=== PATIENT | male | born 1945 | race Caucasian/White ===

== ENCOUNTER 2016-05-23 18:25 | Emergency (ER) | payer MEDICARE, MEDICAID ==
--- NOTE | 2016-05-23 19:19 | ED ---
Complex/Multi-Sys Presentation - HPI Summary HPI Summary: Patient presents after his caregiver found his G-tube in his lap today at 1645. His GI doctor was consulted and he was referred to the ED for the tube to be replaced. He is in no acute distress without complaints. - History Of Current Complaint Chief Complaint: EDGeneral Time Seen by Provider: 05/23/16 18:34 Hx Obtained From: Family/Environmental Health Manager Onset/Duration: Sudden Onset Timing: Constant Severity Currently: None Location: Negative Associated Signs And Symptoms: Positive: Indwelling Commercial Account Officer - G-tube - Allergies/Home Medications Allergies/Adverse Reactions: Allergies Allergy/AdvReac Type Severity Reaction Status Date / Time No Known Drug Allergy Allergy Unknown Verified 04/26/14 14:00 Reaction Details PMH/Surg Hx/FS Hx/Imm Hx Cardiovascular History: Reports: Hx Congestive Heart Failure, Other Cardiovascular Problems/Disorders - peripheral edema Respiratory History: Reports: Hx Pneumonia GI History: Reports: Other GI Disorders - constipation, gerd, hemorrhoid History: Comment Only: Other Problems/Disorders - uti Musculoskeletal History: Reports: Other Musculoskeletal History - degenerative disk disease Sensory History: Reports: Hx Cataracts - unsure per sister, Hx Contacts or Glasses Opthamlomology History: Reports: Hx Cataracts - unsure per sister, Hx Contacts or Glasses Neurological History: Comment Only: Other Neuro Impairments/Disorders - per pt's sister--none Psychiatric History: Reports: Hx Anxiety, Other Psychiatric Issues/Disorders - mental retardation - Surgical History Surgery Procedure, Year, and Place: hip sugery----unknown date. ankle sugery--- unknown date Hx Anesthesia Reactions: No Infectious Disease History: Reports: Hx Tuberculosis Denies: Traveled Outside the [place] in Last 30 Days - Family History Known Family History: Positive: None - Social History Occupation: Disabled Lives: Assisted Living Alcohol Use: None Substance Use Type: Reports: None Smoking Status (MU): Never Smoked Tobacco Review of Systems All Other Systems Reviewed And Are Negative: Yes Physical Exam Triage Information Reviewed: Yes Vital Signs On Initial Exam: Initial Vitals Temp Pulse Resp BP Pulse Ox 97.4 F 65 20 121/61 95 05/23/16 18:32 05/23/16 18:32 05/23/16 18:32 05/23/16 18:32 05/23/16 18:32 Vital Signs Reviewed: Yes Appearance: Positive: Well-Appearing, No Pain Distress, Obese Skin: Positive: Warm, Skin Color Reflects Adequate Perfusion, Dry, Soft Head/Face: Positive: Normal Head/Face Inspection Eyes: Positive: EOMI, BEATRIZ, Conjunctiva Clear ENT: Positive: Hearing grossly normal Respiratory/Lung Sounds: Positive: Breath Sounds Present Cardiovascular: Positive: RRR Abdomen Description: Positive: Soft, Other: - G-tube Bowel Sounds: Positive: Present Musculoskeletal: Negative: Edema Left, Edema Right Neurological: Positive: Sensory/Motor Intact Psychiatric: Positive: Affect/Mood Appropriate - baseline as per caregiver AVPU Assessment: Alert Procedures - Procedure Summary Procedure Summary: The patient's g-tube anastomosis was cleansed and an 18 Israeli catheter was inserted through the space with water based lube. 10 cc of sterile saline was injected into the catheter to fill the balloon and the catheter was advanced until resistance was met. The area was cleansed and dressed with clean gauze and paper tape. The patient tolerated the procedure well. An x-ray with contrast was ordered to confirm tube placement. Diagnostics - Vital Signs Vital Signs Temp Pulse Resp BP Pulse Ox 05/23/16 18:32 97.4 F 65 20 121/61 95 - Laboratory Lab Statement: Any lab studies that have been ordered have been reviewed, and results considered in the medical decision making process. - Radiology No standard instances Xray Interpretation: No Acute Changes Radiology Interpretation Completed By: Radiologist - Contrast appears to be in the GI tract without obvious extension outside Complex Multi-Symp Course/Dx Course Of Treatment: The patient's tube appears successfully replaced. He will be referred back to his GI provider for permanent solution to his tube. - Diagnoses Differential Diagnoses/HQI/PQRI: Aspiration, Sepsis, Urinary Tract Infection, Other Provider Diagnoses: Impaired oral gastric feeding tube - Physician Notifications Discussed Care Of Patient With: Dr. Armstrong, ED attending. Discharge - Discharge Plan Condition: Stable Disposition: HOME Referrals: John Donahue DO [Primary Care Provider] - Additional Instructions: Please contact the patient's GI doctor in the morning for an appointment tomorrow for tube placement. Return to the emergency department if symptoms worsen.
--- NOTE | 2016-05-23 20:00 | RAD ---
INDICATION: The patient dislodged his gastrostomy tube. TECHNIQUE: 2 portable views the abdomen were obtained after contrast had been injected into the gastrostomy tube. FINDINGS: Contrast is seen filling the percutaneous gastrostomy tube. There is a small amount of contrast in the gastric lumen and contrast extending into the fourth portion of the duodenum. There is no definite extravasation of contrast. The balloon of the gastrostomy tube is overlying the midline epigastric area. IMPRESSION:None of the contrast injected into the gastrostomy tube is seen definitely outside the gastrointestinal tract indicating the patient's gastrostomy tube is likely appropriately positioned.
[2016-05-23 20:20] VITALS: BP 131/76
== END 2016-05-23 20:18 | disposition home or self-care (01) ==
LOC: ED 18:25
DX: R63.3 Feeding difficulties (principal); Z93.1 Gastrostomy status; Z86.79 Personal history of other diseases of the circulatory system
CPT/HCPCS: 74000; 99282

== ENCOUNTER 2016-05-31 12:43 | Emergency (ER) | payer MEDICARE, MEDICAID ==
[2016-05-31 14:32] VITALS: BP 128/75
--- NOTE | 2016-05-31 16:24 | ED ---
Skin Complaint - HPI Summary HPI Summary: 70 y/o male known to ER after visit 05/23, please see prior visit for medical information. Patients caregiver states G-tube clogged. Attempted to unclog with water, no success. Meds and feedings given through tube. tube recently replaced after fell out. no other concerns. - History of Current Complaint Chief Complaint: EDGeneral Time Seen by Provider: 05/31/16 13:15 Stated Complaint: POSS BLOCKAGE IN G-TUBE Hx Obtained From: Patient Hx From Patient Unobtainable Due To: Dementia Timing: Constant Pain Intensity: 0 Pain Scale Used: 0-10 Numeric - Allergy/Home Medications Allergies/Adverse Reactions: Allergies Allergy/AdvReac Type Severity Reaction Status Date / Time No Known Drug Allergy Allergy Unknown Verified 04/26/14 14:00 Reaction Details PMH/Surg Hx/FS Hx/Imm Hx Previously Healthy: No Cardiovascular History: Reports: Hx Congestive Heart Failure, Other Cardiovascular Problems/Disorders - peripheral edema Respiratory History: Reports: Hx Pneumonia GI History: Reports: Other GI Disorders - constipation, gerd, hemorrhoid History: Comment Only: Other Problems/Disorders - uti Musculoskeletal History: Reports: Other Musculoskeletal History - degenerative disk disease Sensory History: Reports: Hx Cataracts - unsure per sister, Hx Contacts or Glasses Opthamlomology History: Reports: Hx Cataracts - unsure per sister, Hx Contacts or Glasses Neurological History: Comment Only: Other Neuro Impairments/Disorders - per pt's sister--none Psychiatric History: Reports: Hx Anxiety, Other Psychiatric Issues/Disorders - mental retardation - Surgical History Surgery Procedure, Year, and Place: hip sugery----unknown date. ankle sugery--- unknown date Hx Anesthesia Reactions: No Infectious Disease History: No Infectious Disease History: Reports: Hx Tuberculosis Denies: Traveled Outside the [place] in Last 30 Days - Family History Known Family History: Positive: None - Social History Alcohol Use: None Substance Use Type: Reports: None Smoking Status (MU): Never Smoked Tobacco Review of Systems - ROS Summary Review of Systems Summary: unable to assess due to patients condition, appears well without complaints Constitutional: Negative All Other Systems Reviewed And Are Negative: Yes Physical Exam - Summary Physical Exam Summary: G tube in proper position, no redness around insertion site, obvious white clog seen in tubing, connected to regular coke, flushed through after few minutes of rest, flushed with 30cc water without problem. Triage Information Reviewed: Yes Vital Signs On Initial Exam: Initial Vitals Temp Pulse Resp BP Pulse Ox 96.0 F 62 20 108/81 98 05/31/16 12:45 05/31/16 12:45 05/31/16 12:45 05/31/16 12:45 05/31/16 12:45 Vital Signs Reviewed: Yes Appearance: Positive: Well-Appearing, No Pain Distress, Well-Nourished Skin: Positive: Warm, Skin Color Reflects Adequate Perfusion Abdomen Description: Positive: Nontender, Soft Diagnostics - Vital Signs Vital Signs Temp Pulse Resp BP Pulse Ox 05/31/16 14:28 96.0 F 54 20 128/75 95 05/31/16 12:45 96.0 F 62 20 108/81 98 - Laboratory Lab Statement: Any lab studies that have been ordered have been reviewed, and results considered in the medical decision making process. Course/Dx - Course Course Of Treatment: clogged G tube, no complications, unclogged. - Diagnoses Provider Diagnoses: Gastrostomy tube obstruction Discharge - Discharge Plan Condition: Improved Disposition: HOME Referrals: John Donahue DO [Primary Care Provider] - Additional Instructions: CLogged G tube, likely with medication - Clog taken out with 10cc of cola, regular - REturn as needed, flushing well
== END 2016-05-31 14:54 | disposition home or self-care (01) ==
LOC: ED 12:43
DX: K94.23 Gastrostomy malfunction (principal)
CPT/HCPCS: 99281

== ENCOUNTER 2016-07-03 23:06 | Inpatient (IN) | payer MEDICARE, MEDICAID ==
[2016-07-03] MEDS ORDERED: Furosemide IV* 10 MG/ML VIAL (40 MG) ONE (23:18)
[2016-07-03] MEDS ORDERED: Furosemide IV* 10 MG/ML VIAL (40 MG) IV ONE (23:21)
[2016-07-04 00:04] LABS: Urine Bilirubin Negative (Negative); Urine Glucose Negative (Negative); Urine Nitrite Negative (Negative)
[2016-07-04] MEDS ORDERED: Levofloxacin 750 MG IVPREMIX(* 750 MG/150 ML BAG IVPB ONE (00:15)
[2016-07-04 00:43] LABS: Albumin 3.2 g/dL (3.2-5.2); BUN/Creatinine Ratio 39.7 (8-20); C Reactive Protein 19.66 mg/L (< 5.00); Calcium 9.3 mg/dL (8.6-10.3); EGFR African American 177.1 (>60); EGFR Non-African American 137.7 (>60); Globulin 4.1 g/dL (2-4); Magnesium 2.5 mg/dL (1.9-2.7); Potassium 3.9 mmol/L (3.5-5.0); Total Bilirubin 0.5 mg/dL (0.2-1.0); Total Protein 7.3 g/dL (6.4-8.9)
[2016-07-04 00:44] LABS: Hematocrit 39 % (42-52); Hemoglobin 13.2 g/dl (14.0-18.0); Mean Corpuscular HGB Conc 34 g/dl (31-36); Mean Corpuscular Hemoglobin 33 pg (27-31); Mean Corpuscular Volume 99 fL (80-94); Mean Platelet Volume 12 um3 (7.4-10.4); Red Blood Count 3.96 10^6/ul (4.0-5.4); Red Cell Distribution Width 16 % (10.5-15); White Blood Count 3.1 10^3/ul (3.5-10.8)
[2016-07-04 00:45] LABS: Troponin I 0.01 ng/mL (<0.04)
[2016-07-04 00:48] LABS: Add Diff/Slide Review? Slide Review Added; Comments Flag Yes
[2016-07-04 01:25] LABS: TSH (Thyroid Stimulating Horm) 9.45 mcIU/mL (0.34-5.60)
--- NOTE | 2016-07-04 02:55 | HP ---
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 He is able to make basic needs known, but not without detail or insight. Currently is is lethargic and unable to participate in this history. His [facility] staff member reports noticing increased respiratory rate today during bathing prompting transfer to [place] ED for evaluation where he was diagnosed with CHF based on XRY and was placed on BiPap. He was not given diuretics prior to transfer due to low blood pressures, but did receive norepinephrine. Review of their records reveals a BNP of 64 strongly speaking against CHF. Additionally, repeat CXR here is poor inspiration, but not consistent with CHF and review of the [place] film which is of better inspiration looks more more likely a RLL infiltrate consistent with his history of dysphagia and aspiration. As he is a DNR and his respiratory rate is currently in the high 40s/low 50s, we will continue BiPap as he is a DNR/I, initiate empiric ABX, start IVFs, & hold further diuresis. PMedHx CHF HX GI bleed HX CVA hypothyroidism dysphagia aspiration pneumonitis chronic BLE edema GERD severe intellectual disability chronic gingivitis constipation non-inflammatory joint disease onychauxis positive PPD HX tobacco use strabismus chronic bronchitis B ptosis club foot s/p repair onychomycosis hemorrhoids Medications Nursing to reconcile. Allergies No Known Drug Allergy Allergy (Verified 04/26/14 14:00) Unknown Reaction Details PSurgHx none known to [facility] staff member SocHx: HX chewing tobacco none now, no alcohol or recreational drugs; single, never , no children; resides at the [facility]; baseline vocabulary of a 3-4year old, congenitally mentally challenged; DNR/I code status FamHx: unobtainable ROS: as above, otherwise reviewed and all were negative Constitutional: NAD, normally developed, obese white male vitals: Vital Signs Temp 34.1 C 07/04/16 02:30 Pulse 60 07/04/16 02:30 Resp 25 07/04/16 02:30 BP 114/39 07/04/16 02:30 Pulse Ox 91 07/04/16 02:30 Intake & Output 07/03/16 07/03/16 07/04/16 11:59 23:59 11:59 Intake Total 8 Output Total 925 Balance 8 -925 Weight 97.522 kg Intake: IV Fluids 8 Output: Sanchez 925 HEENM: atraumatic; sclera/conjunctiva: non-icteric/clear; hearing: unable to assess; oropharynx: clear, mucosa tacky Neck: soft tissue: non-tender, no nuchal rigidity; thyroid: normal Pulmonary: on BiPap, tachypneic in the high 40s/low 50s without overt distress or struggle; coarse crackles R>L base, good aeration, no accessory muscle use CV: RR/RR, normal S1S2, no carotid bruit, no jugular venous distention, trace B DP/PT, 3+ B pedal/2+ BLE edema (chronic) Abdominal: soft, non-distended, non-tender, no rebound/guarding/rigidity, normoactive bowel sounds, no hepatosplenomegaly or masses, no costovertebral angle tenderness Musculoskeletal: general: club foot; gait: currently too ill to attempt ambulation Integumental: normal appearance and texture Psychiatric orientation: opens eyes to tactile stimulate, does not answer questions affect: somnolent mood: acquiescent eye contact: poor content: absent responses: absent insight: poor to absent Testing: (Samuel): WBC 3.8k 74% granulocytes, 81k platelets, albumin 2.9, BUN/ cre 24/0.6, AST/ALT 66/84, BNP 64, troponin 0.01. Lab Results 07/03/16 07/04/16 07/04/16 Range/Units 23:40 00:16 00:16 WBC 3.1 L (3.5-10.8) 10^3/ul RBC 3.96 L (4.0-5.4) 10^6/ul Hgb 13.2 L (14.0-18.0) g/dl Hct 39 L (42-52) % MCV 99 H (80-94) fL MCH 33 H (27-31) pg MCHC 34 (31-36) g/dl RDW 16 H (10.5-15) % Plt Count 65 L (150-450) 10^3/ul MPV 12 H (7.4-10.4) um3 Neut % (Auto) 70.0 (38-83) % Lymph % (Auto) 19.5 L (25-47) % Loup % (Auto) 9.1 H (1-9) % Eos % (Auto) 0.4 (0-6) % Baso % (Auto) 1.0 (0-2) % Absolute Neuts (auto) 2.1 (1.5-7.7) 10^3/ul Absolute Lymphs (auto) 0.6 L (1.0-4.8) 10^3/ul Absolute Monos (auto) 0.3 (0-0.8) 10^3/ul Absolute Eos (auto) 0 (0-0.6) 10^3/ul Absolute Basos (auto) 0 (0-0.2) 10^3/ul Absolute Nucleated RBC 0.01 10^3/ul Nucleated RBC % 0.4 INR (Anticoag Therapy) 0.87 L (0.89-1.11) APTT 43.3 H (26.0-36.3) seconds D-Dimer, Quantitative 209 (Less Than 230) ng/mL Sodium (133-145) mmol/L Potassium (3.5-5.0) mmol/L Chloride (101-111) mmol/L Carbon Dioxide (22-32) mmol/L Anion Gap (2-11) mmol/L BUN (6-24) mg/dL Creatinine (0.67-1.17) mg/dL Est GFR ( Amer) (>60) Est GFR (Non-Af Amer) (>60) BUN/Creatinine Ratio (8-20) Glucose (70-100) mg/dL Lactic Acid (0.5-2.0) mmol/L Calcium (8.6-10.3) mg/dL Magnesium (1.9-2.7) mg/dL Total Bilirubin (0.2-1.0) mg/dL AST (13-39) U/L ALT (7-52) U/L Alkaline Phosphatase (34-104) U/L Total Creatine Kinase (10-223) U/L CK-MB (CK-2) (0.6-6.3) ng/mL Troponin I (<0.04) ng/mL C-Reactive Protein (< 5.00) mg/L B-Natriuretic Peptide ( - 100) pg/mL Total Protein (6.4-8.9) g/dL Albumin (3.2-5.2) g/dL Globulin (2-4) g/dL Albumin/Globulin Ratio (1-3) Lipase (11.0-82.0) U/L TSH (0.34-5.60) mcIU/mL Urine Color Yellow Urine Appearance Clear Urine pH 7.0 (5-9) Ur Specific [place] 1.010 (1.010-1.030) Urine Protein Negative (Negative) Urine Ketones Negative (Negative) Urine Blood Negative (Negative) Urine Nitrate Negative (Negative) Urine Bilirubin Negative (Negative) Urine Urobilinogen Negative (Negative) Ur Leukocyte Esterase Negative (Negative) Urine Glucose Negative (Negative) Urine Ascorbic Acid * H (Negative) 07/04/16 07/04/16 07/04/16 Range/Units 00:16 00:16 00:16 WBC (3.5-10.8) 10^3/ul RBC (4.0-5.4) 10^6/ul Hgb (14.0-18.0) g/dl Hct (42-52) % MCV (80-94) fL MCH (27-31) pg MCHC (31-36) g/dl RDW (10.5-15) % Plt Count (150-450) 10^3/ul MPV (7.4-10.4) um3 Neut % (Auto) (38-83) % Lymph % (Auto) (25-47) % Loup % (Auto) (1-9) % Eos % (Auto) (0-6) % Baso % (Auto) (0-2) % Absolute Neuts (auto) (1.5-7.7) 10^3/ul Absolute Lymphs (auto) (1.0-4.8) 10^3/ul Absolute Monos (auto) (0-0.8) 10^3/ul Absolute Eos (auto) (0-0.6) 10^3/ul Absolute Basos (auto) (0-0.2) 10^3/ul Absolute Nucleated RBC 10^3/ul Nucleated RBC % INR (Anticoag Therapy) (0.89-1.11) APTT (26.0-36.3) seconds D-Dimer, Quantitative (Less Than 230) ng/mL Sodium 133 (133-145) mmol/L Potassium 3.9 (3.5-5.0) mmol/L Chloride 95 L (101-111) mmol/L Carbon Dioxide 32 (22-32) mmol/L Anion Gap 6 (2-11) mmol/L BUN 23 (6-24) mg/dL Creatinine 0.58 L (0.67-1.17) mg/dL Est GFR ( Amer) 177.1 (>60) Est GFR (Non-Af Amer) 137.7 (>60) BUN/Creatinine Ratio 39.7 H (8-20) Glucose 78 (70-100) mg/dL Lactic Acid 1.1 (0.5-2.0) mmol/L Calcium 9.3 (8.6-10.3) mg/dL Magnesium 2.5 (1.9-2.7) mg/dL Total Bilirubin 0.50 (0.2-1.0) mg/dL AST 55 H (13-39) U/L ALT 62 H (7-52) U/L Alkaline Phosphatase 222 H (34-104) U/L Total Creatine Kinase 25 (10-223) U/L CK-MB (CK-2) 8.7 H (0.6-6.3) ng/mL Troponin I 0.01 (<0.04) ng/mL C-Reactive Protein 19.66 H (< 5.00) mg/L B-Natriuretic Peptide 42 ( - 100) pg/mL Total Protein 7.3 (6.4-8.9) g/dL Albumin 3.2 (3.2-5.2) g/dL Globulin 4.1 H (2-4) g/dL Albumin/Globulin Ratio 0.8 L (1-3) Lipase 14 (11.0-82.0) U/L TSH 9.45 H (0.34-5.60) mcIU/mL Urine Color Urine Appearance Urine pH (5-9) Ur Specific [place] (1.010-1.030) Urine Protein (Negative) Urine Ketones (Negative) Urine Blood (Negative) Urine Nitrate (Negative) Urine Bilirubin (Negative) Urine Urobilinogen (Negative) Ur Leukocyte Esterase (Negative) Urine Glucose (Negative) Urine Ascorbic Acid (Negative) ECG, personally reviewed: sinus RBBB rate 60, no ischemia CXR, personally reviewed (ELISEO): poor inspiratory effort, cannot r/o infiltrate CXR, personally reviewed (Samuel): diffusely increased interstitium w/ RLL infiltrate Impression: 70M presenting with acute hypoxic respiratory failure 2nd suspected acute aspiration pneumonitis/pneumonia DIAGNOSIS & PLAN Primary acute systolic and diastolic HF w/ 2nd suspected acute aspiration pneumonitis/ pneumonia : BiPap, no intubation per MOLST : IV piperacillin/tazobactam : guaifenesin via PEG : blood & sputum CXs : check urine Legionella & S pneumo antigens : IVFs : supplemental oxygen : overall prognosis poor : sanchez for accurate monitoring of renal function in critically ill patient : supportive care hypothyroidism : consider increasing levothyroxine once reconciled Secondary HX CHF : strict I&Os : daily weights GERD : omeprazole via PEG HX GI bleed : no acute issues HX CVA : no acute issues chronic BLE edema : stable severe intellectual disability : no acute issues Admission Rational: inpatient for ICU management of hypoxic respiratory failure 2nd CHF requiring BiPap DVTp: heparin SQ & SCDs Code Status: DNR/I, MOLST updated HCP: sisterAlondra [phone]
[2016-07-04] MEDS ORDERED: Ondansetron INJ* 2 MG/ML VIAL IV PRN (03:22)
[2016-07-04] MEDS ORDERED: Acetaminophen TAB* 325 MG PO PRN (03:22)
[2016-07-04] MEDS ORDERED: NS 0.9% 1000 ML* 1,000 ML IV SCH (03:30)
[2016-07-04] MEDS ORDERED: NS 0.9% 1000 ML* 1,000 ML IV ONE (03:30)
[2016-07-04] MEDS ORDERED: Piperac/Tazob 3.375 gm in NS* 3.375 GM/100 ML BAG IVPB ONE (04:00)
[2016-07-04 04:48] LABS: Hematocrit 36 % (42-52); Hemoglobin 12.1 g/dl (14.0-18.0); Mean Corpuscular HGB Conc 34 g/dl (31-36); Mean Corpuscular Hemoglobin 33 pg (27-31); Mean Corpuscular Volume 98 fL (80-94); Mean Platelet Volume 11 um3 (7.4-10.4); Red Blood Count 3.66 10^6/ul (4.0-5.4); Red Cell Distribution Width 16 % (10.5-15); White Blood Count 4.3 10^3/ul (3.5-10.8)
[2016-07-04 04:55] LABS: Comments Flag Yes
[2016-07-04 04:57] LABS: Albumin 2.8 g/dL (3.2-5.2); BUN/Creatinine Ratio 36.1 (8-20); Calcium 8.6 mg/dL (8.6-10.3); Direct Bilirubin 0.1 mg/dL (0.03-0.18); EGFR African American 167.1 (>60); EGFR Non-African American 129.9 (>60); Globulin 3.6 g/dL (2-4); Indirect Bilirubin 0.5 mg/dL (0.3-1.0); Potassium 3.5 mmol/L (3.5-5.0); Total Bilirubin 0.6 mg/dL (0.2-1.0); Total Protein 6.4 g/dL (6.4-8.9)
[2016-07-04] MEDS ORDERED: Omeprazole CAP* 20 MG PO SCH (06:00)
--- NOTE | 2016-07-04 08:00 | RAD ---
INDICATION: Hypoxia COMPARISON: July 03, 2016 TECHNIQUE: An AP portable view obtained at 2334 hours is submitted. FINDINGS: Bones/Soft Tissues: There are no acute bony findings. There are calcifications projecting over the right scapula, unchanged. Cardiomediastinal: The heart is normal in size. Lungs: There are no focal infiltrates. There is resolution of interstitial congestion. Pleura: There are no pleural effusions. Other: None IMPRESSION: RESOLUTION OF VASCULAR CONGESTIVE FINDINGS. NO ADDITIONAL INTERVAL CHANGES.
[2016-07-04 08:11] LABS: EPAP 8; FIO2 50; IPAP 16; Resp Rate 16
[2016-07-04 08:15] LABS: PCO2 Arterial 32 mmHg (35-45)
[2016-07-04] MEDS: Piperac/Tazob 3.375 gm in NS* 3.375 GM/100 ML BAG IVPB SCH ×2 (08:19→16:59)
--- NOTE | 2016-07-04 08:20 | ED ---
Geri Richmond Salem, scribed for Dayron Gomez MD on 07/03/16 at 2347 . Shortness of Breath - HPI Summary HPI Summary: Patient is a 70 y/o male who presents to the ED per EMS with SOB. Pt was transferred from [facility] due to dyspnea on BiPAP. Pt had a temperature of 91 F rectally, O2 sat of 100%, and a rate of 65 upon examination. Caregiver reports that pt has the vocabulary of a 3 year old, but is able to communicate minimally. - History of Current Complaint Chief Complaint: EDShortnessOfBreath Hx Obtained From: Family/Harp Regulator, EMS Onset/Duration: Gradual Onset, Lasting Hours, Still Present Timing: Constant Current Severity: Moderate Dyspnea At: Rest Aggrevating Factors: Nothing Alleviating Factors: Nothing Associated Signs & Symptoms: Negative - Allergy/Home Medications Allergies/Adverse Reactions: Allergies Allergy/AdvReac Type Severity Reaction Status Date / Time No Known Drug Allergy Allergy Unknown Verified 04/26/14 14:00 Reaction Details PMH/Surg Hx/FS Hx/Imm Hx Cardiovascular History: Reports: Hx Congestive Heart Failure, Other Cardiovascular Problems/Disorders - peripheral edema Respiratory History: Reports: Hx Pneumonia GI History: Reports: Other GI Disorders - constipation, gerd, hemorrhoid History: Comment Only: Other Problems/Disorders - uti Musculoskeletal History: Reports: Other Musculoskeletal History - degenerative disk disease Sensory History: Reports: Hx Cataracts - unsure per sister, Hx Contacts or Glasses Opthamlomology History: Reports: Hx Cataracts - unsure per sister, Hx Contacts or Glasses Neurological History: Comment Only: Other Neuro Impairments/Disorders - per pt's sister--none Psychiatric History: Reports: Hx Anxiety, Other Psychiatric Issues/Disorders - mental retardation - Surgical History Surgery Procedure, Year, and Place: hip sugery----unknown date. ankle sugery--- unknown date Hx Anesthesia Reactions: No Infectious Disease History: No Infectious Disease History: Reports: Hx Tuberculosis Denies: Traveled Outside the [place] in Last 30 Days - Family History Known Family History: Positive: Unknown - Reviewed - unknown. - Social History Alcohol Use: None Hx Substance Use: No Substance Use Type: Reports: None Hx Tobacco Use: No Smoking Status (MU): Never Smoked Tobacco Review of Systems Positive: Other - 91 F rectally, O2 sat of 100%, and a rate of 65. Positive: Shortness Of Breath All Other Systems Reviewed And Are Negative: Yes Physical Exam Triage Information Reviewed: Yes Vital Signs On Initial Exam: Initial Vitals Temp Pulse Resp BP Pulse Ox 91.0 F 51 60 110/67 97 07/03/16 23:13 07/03/16 23:13 07/03/16 23:13 07/03/16 23:13 07/03/16 23:13 Vital Signs Reviewed: Yes Appearance: Positive: Well-Appearing, No Pain Distress Skin: Positive: Warm, Skin Color Reflects Adequate Perfusion, Dry Head/Face: Positive: Normal Head/Face Inspection Eyes: Positive: EOMI, BEATRIZ Neck: Positive: Supple, Nontender Respiratory/Lung Sounds: Positive: Breath Sounds Present, Other - Crackles. Tachypnea upon exam. Cardiovascular: Positive: RRR Abdomen Description: Positive: Nontender, Soft Bowel Sounds: Positive: Present Musculoskeletal: Positive: Strength/ROM Intact, Edema Left, Edema Right Neurological: Positive: Normal, Sensory/Motor Intact, Alert, Oriented to Person Place, Time Psychiatric: Positive: Affect/Mood Appropriate Diagnostics - Vital Signs Vital Signs Temp Pulse Resp BP Pulse Ox 07/03/16 23:32 60 65 93 07/03/16 23:13 91.0 F 51 60 110/67 97 - Laboratory Lab Results: Lab Results 07/03/16 07/04/16 07/04/16 Range/Units 23:40 00:16 00:16 WBC 3.1 L (3.5-10.8) 10^3/ul RBC 3.96 L (4.0-5.4) 10^6/ul Hgb 13.2 L (14.0-18.0) g/dl Hct 39 L (42-52) % MCV 99 H (80-94) fL MCH 33 H (27-31) pg MCHC 34 (31-36) g/dl RDW 16 H (10.5-15) % Plt Count 65 L (150-450) 10^3/ul MPV 12 H (7.4-10.4) um3 Neut % (Auto) 70.0 (38-83) % Lymph % (Auto) 19.5 L (25-47) % [place] % (Auto) 9.1 H (1-9) % Eos % (Auto) 0.4 (0-6) % Baso % (Auto) 1.0 (0-2) % Absolute Neuts (auto) 2.1 (1.5-7.7) 10^3/ul Absolute Lymphs (auto) 0.6 L (1.0-4.8) 10^3/ul Absolute Monos (auto) 0.3 (0-0.8) 10^3/ul Absolute Eos (auto) 0 (0-0.6) 10^3/ul Absolute Basos (auto) 0 (0-0.2) 10^3/ul Absolute Nucleated RBC 0.01 10^3/ul Nucleated RBC % 0.4 INR (Anticoag Therapy) 0.87 L (0.89-1.11) APTT 43.3 H (26.0-36.3) seconds D-Dimer, Quantitative 209 (Less Than 230) ng/mL Sodium (133-145) mmol/L Potassium (3.5-5.0) mmol/L Chloride (101-111) mmol/L Carbon Dioxide (22-32) mmol/L Anion Gap (2-11) mmol/L BUN (6-24) mg/dL Creatinine (0.67-1.17) mg/dL Est GFR ( Amer) (>60) Est GFR (Non-Af Amer) (>60) BUN/Creatinine Ratio (8-20) Glucose (70-100) mg/dL Lactic Acid (0.5-2.0) mmol/L Calcium (8.6-10.3) mg/dL Magnesium (1.9-2.7) mg/dL Total Bilirubin (0.2-1.0) mg/dL AST (13-39) U/L ALT (7-52) U/L Alkaline Phosphatase (34-104) U/L Total Creatine Kinase (10-223) U/L CK-MB (CK-2) (0.6-6.3) ng/mL Troponin I (<0.04) ng/mL C-Reactive Protein (< 5.00) mg/L B-Natriuretic Peptide ( - 100) pg/mL Total Protein (6.4-8.9) g/dL Albumin (3.2-5.2) g/dL Globulin (2-4) g/dL Albumin/Globulin Ratio (1-3) Lipase (11.0-82.0) U/L TSH (0.34-5.60) mcIU/mL Urine Color Yellow Urine Appearance Clear Urine pH 7.0 (5-9) Ur Specific [place] 1.010 (1.010-1.030) Urine Protein Negative (Negative) Urine Ketones Negative (Negative) Urine Blood Negative (Negative) Urine Nitrate Negative (Negative) Urine Bilirubin Negative (Negative) Urine Urobilinogen Negative (Negative) Ur Leukocyte Esterase Negative (Negative) Urine Glucose Negative (Negative) Urine Ascorbic Acid * H (Negative) 07/04/16 07/04/16 07/04/16 Range/Units 00:16 00:16 00:16 WBC (3.5-10.8) 10^3/ul RBC (4.0-5.4) 10^6/ul Hgb (14.0-18.0) g/dl Hct (42-52) % MCV (80-94) fL MCH (27-31) pg MCHC (31-36) g/dl RDW (10.5-15) % Plt Count (150-450) 10^3/ul MPV (7.4-10.4) um3 Neut % (Auto) (38-83) % Lymph % (Auto) (25-47) % Phelps % (Auto) (1-9) % Eos % (Auto) (0-6) % Baso % (Auto) (0-2) % Absolute Neuts (auto) (1.5-7.7) 10^3/ul Absolute Lymphs (auto) (1.0-4.8) 10^3/ul Absolute Monos (auto) (0-0.8) 10^3/ul Absolute Eos (auto) (0-0.6) 10^3/ul Absolute Basos (auto) (0-0.2) 10^3/ul Absolute Nucleated RBC 10^3/ul Nucleated RBC % INR (Anticoag Therapy) (0.89-1.11) APTT (26.0-36.3) seconds D-Dimer, Quantitative (Less Than 230) ng/mL Sodium 133 (133-145) mmol/L Potassium 3.9 (3.5-5.0) mmol/L Chloride 95 L (101-111) mmol/L Carbon Dioxide 32 (22-32) mmol/L Anion Gap 6 (2-11) mmol/L BUN 23 (6-24) mg/dL Creatinine 0.58 L (0.67-1.17) mg/dL Est GFR ( Amer) 177.1 (>60) Est GFR (Non-Af Amer) 137.7 (>60) BUN/Creatinine Ratio 39.7 H (8-20) Glucose 78 (70-100) mg/dL Lactic Acid 1.1 (0.5-2.0) mmol/L Calcium 9.3 (8.6-10.3) mg/dL Magnesium 2.5 (1.9-2.7) mg/dL Total Bilirubin 0.50 (0.2-1.0) mg/dL AST 55 H (13-39) U/L ALT 62 H (7-52) U/L Alkaline Phosphatase 222 H (34-104) U/L Total Creatine Kinase 25 (10-223) U/L CK-MB (CK-2) 8.7 H (0.6-6.3) ng/mL Troponin I 0.01 (<0.04) ng/mL C-Reactive Protein 19.66 H (< 5.00) mg/L B-Natriuretic Peptide 42 ( - 100) pg/mL Total Protein 7.3 (6.4-8.9) g/dL Albumin 3.2 (3.2-5.2) g/dL Globulin 4.1 H (2-4) g/dL Albumin/Globulin Ratio 0.8 L (1-3) Lipase 14 (11.0-82.0) U/L TSH 9.45 H (0.34-5.60) mcIU/mL Urine Color Urine Appearance Urine pH (5-9) Ur Specific [place] (1.010-1.030) Urine Protein (Negative) Urine Ketones (Negative) Urine Blood (Negative) Urine Nitrate (Negative) Urine Bilirubin (Negative) Urine Urobilinogen (Negative) Ur Leukocyte Esterase (Negative) Urine Glucose (Negative) Urine Ascorbic Acid (Negative) Result Diagrams: 07/04/16 04:20 07/04/16 04:20 Lab Statement: Any lab studies that have been ordered have been reviewed, and results considered in the medical decision making process. - Radiology CXR Radiology Interpretation Completed By: ED Physician - Negative. (CXR @ [facility] showed CHF) - EKG 0122 EKG Interpretation: NSR @ 60 bpm. RBBB. Right anterior fascicular block. Course/Dx - Course Assessment/Plan: IMPROVED IN ED ON BPAP WITH LASIX. ADMIT HOSPITALIST GUARDED. - Diagnoses Provider Diagnoses: CHF (congestive heart failure), Aspiration pneumonia - Physician Notifications Discussed Care of Patient With: Dr. Sal (hospitalist) @ 0111. Will admit. - Critical Care Time Critical Care Time: 30-74 min Discharge - Discharge Plan Condition: Guarded Disposition: ADMITTED TO Health system documentation as recorded by the Geri bell Salem accurately reflects the service I personally performed and the decisions made by me, Dayron Gomez MD.
[2016-07-04] MEDS ORDERED: Docusate CAP* 100 MG PO SCH (09:00)
[2016-07-04] MEDS ORDERED: Furosemide IV* 10 MG/ML 2 ML VIAL (20 MG) IV SLOW PU ONE (10:32)
[2016-07-04] MEDS ORDERED: Albuterol 2.5 MG/3 ML NEB.SOL* (0.083%) INH PRN (10:32)
--- NOTE | 2016-07-04 10:39 | CONSULT ---
Consult Consult: Consultation Note Critical Care Requesting Physician: Alexei Caldwell Reason for consult: respiratory distress Limitations in history/physical: mental retardation, resp distress Date of consult: 07/04/2016 HPI: 70y M w/pmhx of mental retardation, CHF, dysphagia s/p Gtube, h/o TB in past, h/o GI bleed/hemorrhoids; who presented to [facility] for respiratoy distress from [facility]. They noted desaturation, respiratory distress. No mention of fever/chills/cough prior. He was brought to [facility] and found to have pulm congestion, given Lasix, started on NIV and [place] [facility] [facility] repeat cxr demonstrated improved congestion. He was hypothermic to 91 deg F, hemodyn stable, HR 60s, BP 100-120s, sat 100% on NIV. This morning on NIV, sleeping, no resp distress on NIV. On 03/10 100%, sat 100%, rr 14 while asleep; awakens and RR increased, more alert, nonverbal. Unable to obtain history due to mental status. ROS: unable to obtain due to mental status. PMHx: Mental Retardation, CHF, Dysphagia s/p gtube, Hemorrhoids, h/o TB, h/o GI bleed, GERD, hypothyroidism. PSHx: hip surgery, ankle surgery (as per chart) Family History: unknown Social History: Alcohol none, Smoking - none, Drug use - none; a sister as HCP Allergies: NKDA Home Medications: soda flush thru gtube 120ml daily, aldactone 25mg bid, kcl 20meq qdaily, milk of mag 30ml daily, asa 325mg daily, debrox 6.5% ear drops bid , Colace bid, dulcolax q72h, Lasix 40mg po daily, jevity 1.2 2 cans bid, synthroid 50mcg daily, loprox gel 0.77% to feet daily, free water 250cc via peg 4x/dailiy, atrovent inhaler as needed, acetaminophen prn. Tele: NSR Vitals: Vital Signs Temp 97.3 F 07/04/16 09:30 Pulse 81 07/04/16 09:30 Resp 32 07/04/16 09:30 BP 121/93 07/04/16 09:30 Pulse Ox 98 07/04/16 09:30 Intake & Output 07/03/16 07/04/16 07/04/16 18:59 06:59 18:59 Intake Total 1218 Output Total 925 Balance 293 Weight 216 lb 4.375 oz Intake: IV Fluids 1008 NS 1000 IVPB 210 ABX - LEVAQUIN 105 ABX - ZOSYN 105 Output: Sanchez 925 O2/Vent: NIV 14/6 50%, sat 100%, rr 18-22, TV 450-500 Infusions: none Current Medications: Acetaminophen (Tylenol Tab*) 650 mg PO Q6H PRN PRN Reason: FEVER/PAIN Albuterol (Ventolin 2.5 Mg/3 Ml Neb.Gaby*) 2.5 mg INH Q4H PRN PRN Reason: SOB/WHEEZING Docusate Sodium (Colace Cap*) 200 mg PO BID [facility] Guaifenesin (Mucinex*) 1,200 mg PO BID [facility] Heparin Sodium (Porcine) (Heparin Vial(*)) 5,000 units SUBCUT Q8HR [facility] Piperacillin Sod/Tazobactam Sod (Zosyn 3.375 Gm In Ns Premix*) 3.375 gm in 100 mls @ 25 mls/hr IVPB Q8H [facility] Last Admin: 07/04/16 08:19 Dose: 25 mls/hr Levothyroxine Sodium (Synthroid Tab (Nf)) 50 mcg PO DAILY@0600 [facility] Omeprazole (Prilosec Cap*) 20 mg PO DAILY@0600 [facility] Last Admin: 07/04/16 05:43 Dose: Not Given Ondansetron HCl (Zofran Inj*) 4 mg IV Q6H PRN PRN Reason: NAUSEA Spironolactone (Aldactone Tab*) 25 mg PO BID [facility] Physical Exam: General: awake, alert, no distress, no diaphoresis; nonverbal, doesnt follow commands. Head: normocephalic, atraumatic HEENT: no pallor, no icterus, moist mucous membranes Neck: soft, supple, no jvd, no stridor CVS: normal rate, normal rhythm, no murmur Resp: bilateral air entry, +rhales, no wheeze, +rhonchi, no acc muscle use Abdomen: soft, nontender, slightly tense, BS+; Gtube + Ext: pulses+, warm, edema2+ Skin: intact, no breakdown, no dryness Neuro: awake, semialert, doesnt follow commands, not verbal, moving some ext Labs: Laboratory Results - last 24 hr 07/03/16 07/04/16 07/04/16 23:40 00:16 00:16 WBC 3.1 L RBC 3.96 L Hgb 13.2 L Hct 39 L MCV 99 H MCH 33 H MCHC 34 RDW 16 H Plt Count 65 L MPV 12 H Neut % (Auto) 70.0 Lymph % (Auto) 19.5 L [place] % (Auto) 9.1 H Eos % (Auto) 0.4 Baso % (Auto) 1.0 Absolute Neuts (auto) 2.1 Absolute Lymphs (auto) 0.6 L Absolute Monos (auto) 0.3 Absolute Eos (auto) 0 Absolute Basos (auto) 0 Absolute Nucleated RBC 0.01 Nucleated RBC % 0.4 INR (Anticoag Therapy) 0.87 L APTT 43.3 H D-Dimer, Quantitative 209 Patient Temperature ABG pH ABG pCO2 ABG pO2 ABG HCO3 ABG O2 Saturation ABG Base Excess Respiration Rate O2 Delivery Device Ventilator Type Vent Mode FiO2 Inspiratory Time PEEP Pressure Support Pressure Control EPAP IPAP BiPAP Sodium Potassium Chloride Carbon Dioxide Anion Gap BUN Creatinine Est GFR ( Amer) Est GFR (Non-Af Amer) BUN/Creatinine Ratio Glucose Lactic Acid Calcium Magnesium Total Bilirubin Direct Bilirubin Indirect Bilirubin AST ALT Alkaline Phosphatase Total Creatine Kinase CK-MB (CK-2) Troponin I C-Reactive Protein B-Natriuretic Peptide Total Protein Albumin Globulin Albumin/Globulin Ratio Lipase TSH Urine Color Yellow Urine Appearance Clear Urine pH 7.0 Ur Specific [place] 1.010 Urine Protein Negative Urine Ketones Negative Urine Blood Negative Urine Nitrate Negative Urine Bilirubin Negative Urine Urobilinogen Negative Ur Leukocyte Esterase Negative Urine Glucose Negative Urine Ascorbic Acid * H 07/04/16 07/04/16 07/04/16 00:16 00:16 00:16 WBC RBC Hgb Hct MCV MCH MCHC RDW Plt Count MPV Neut % (Auto) Lymph % (Auto) [place] % (Auto) Eos % (Auto) Baso % (Auto) Absolute Neuts (auto) Absolute Lymphs (auto) Absolute Monos (auto) Absolute Eos (auto) Absolute Basos (auto) Absolute Nucleated RBC Nucleated RBC % INR (Anticoag Therapy) APTT D-Dimer, Quantitative Patient Temperature ABG pH ABG pCO2 ABG pO2 ABG HCO3 ABG O2 Saturation ABG Base Excess Respiration Rate O2 Delivery Device Ventilator Type Vent Mode FiO2 Inspiratory Time PEEP Pressure Support Pressure Control EPAP IPAP BiPAP Sodium 133 Potassium 3.9 Chloride 95 L Carbon Dioxide 32 Anion Gap 6 BUN 23 Creatinine 0.58 L Est GFR ( Amer) 177.1 Est GFR (Non-Af Amer) 137.7 BUN/Creatinine Ratio 39.7 H Glucose 78 Lactic Acid 1.1 Calcium 9.3 Magnesium 2.5 Total Bilirubin 0.50 Direct Bilirubin Indirect Bilirubin AST 55 H ALT 62 H Alkaline Phosphatase 222 H Total Creatine Kinase 25 CK-MB (CK-2) 8.7 H Troponin I 0.01 C-Reactive Protein 19.66 H B-Natriuretic Peptide 42 Total Protein 7.3 Albumin 3.2 Globulin 4.1 H Albumin/Globulin Ratio 0.8 L Lipase 14 TSH 9.45 H Urine Color Urine Appearance Urine pH Ur Specific [place] Urine Protein Urine Ketones Urine Blood Urine Nitrate Urine Bilirubin Urine Urobilinogen Ur Leukocyte Esterase Urine Glucose Urine Ascorbic Acid 07/04/16 07/04/16 07/04/16 04:20 04:20 08:05 WBC 4.3 RBC 3.66 L Hgb 12.1 L Hct 36 L MCV 98 H MCH 33 H MCHC 34 RDW 16 H Plt Count 68 L MPV 11 H Neut % (Auto) 73.2 Lymph % (Auto) 15.2 L [place] % (Auto) 11.1 H Eos % (Auto) 0.2 Baso % (Auto) 0.3 Absolute Neuts (auto) 3.2 Absolute Lymphs (auto) 0.7 L Absolute Monos (auto) 0.5 Absolute Eos (auto) 0 Absolute Basos (auto) 0 Absolute Nucleated RBC 0.01 Nucleated RBC % 0.1 INR (Anticoag Therapy) APTT D-Dimer, Quantitative Patient Temperature Not Reportable ABG pH 7.57 H ABG pCO2 32 L ABG pO2 139 H ABG HCO3 30.6 ABG O2 Saturation 100.2 H ABG Base Excess 7.3 H Respiration Rate 16 O2 Delivery Device bipap Ventilator Type Not Reportable Vent Mode st FiO2 50 Inspiratory Time Not Reportable PEEP Not Reportable Pressure Support Not Reportable Pressure Control Not Reportable EPAP 8 IPAP 16 BiPAP Not Reportable Sodium 133 Potassium 3.5 Chloride 98 L Carbon Dioxide 28 Anion Gap 7 BUN 22 Creatinine 0.61 L Est GFR ( Amer) 167.1 Est GFR (Non-Af Amer) 129.9 BUN/Creatinine Ratio 36.1 H Glucose 74 Lactic Acid Calcium 8.6 Magnesium Total Bilirubin 0.60 Direct Bilirubin 0.10 Indirect Bilirubin 0.5 AST 54 H ALT 56 H Alkaline Phosphatase 191 H Total Creatine Kinase CK-MB (CK-2) Troponin I C-Reactive Protein B-Natriuretic Peptide Total Protein 6.4 Albumin 2.8 L Globulin 3.6 Albumin/Globulin Ratio 0.8 L Lipase TSH Urine Color Urine Appearance Urine pH Ur Specific [place] Urine Protein Urine Ketones Urine Blood Urine Nitrate Urine Bilirubin Urine Urobilinogen Ur Leukocyte Esterase Urine Glucose Urine Ascorbic Acid Microbiology 07/04/16 04:35 Legionella Urinary Antigen - Final Urine Negative Legionella Streptococcus pneumoniae Ag Screen - Final Negative S. pneumo Antigen 07/04/16 03:00 Nasal Screen MRSA (PCR)(FILIPE) - Final Nasal Mrsa Negative Imaging: cxr 07/03 8pm pulm congestion+, ?RLL infiltrate cxr 07/03 930pm improved pulm congestion; ?RLL infiltrate? Assessment: 70y M w/pmhx of mental retardation, CHF, dysphagia s/p Gtube, h/o TB in past, h/o GI bleed/hemorrhoids; who presented to [facility] for respiratoy distress from [facility] facility. Hypothermic, on NIV, given Lasix and transferred [place] [facility] -Acute Hypoxic Respiratory Failure -Pulmonary Edema, improved -Acute decompensated LV diastolic heart failure -Possible pneumonia? -Hypothermia, improving -Mental retardation Plan: Neuro- awake, baseline not very verbal. Nonfocal it seems. Cont to monitor. As per facility nurses (who are at bedside now) they say baseline is minimal verbalization. Asp prec, neuro checks qshift. CVS- BP and HR stable. No hypotension. Still rhales on lung exam. Lasix iv 40mg today. Monitor i/o. sanchez in place. d/c IVF. Unclear if any pneumonia is present. Body temp improved with warming blanket. Resp- on NIV, dec fio2 requirements. CXR repeat this AM. ABG reviewed. Repeat Lasix IV now. d/c IVF. Can wean off NIV to aerosol mask or NC. Cont abx for another 24-48 hours and re-eval. ID- hypothermic, wbc 3 on admission. ?sepsis. no source identified. Urinalysis negative. Monitor off abx. GI- restart tube feeds jevity 1.2 1 can q6h. GI prophylaxis. Asp prec. Renal- cont Lasix, edema+. Cr normal, K normal. Replete K as needed. Heme- stable hg. Thrombocytopenia. Unclear reason, noted previous thrombocytopenia on previous admissions since February. Will avoid medications that may dec plt count. On PCN for now, plt already reduced on admission. Dec heparin sq to bid. Endo- cont synthroid. FS as needed Musculsk- PT/OT, pressure ulcer prophylaxis Wounds- pressure ulcer prophylaxis. Nutrition- restart tube feeds DVT prophylaxis: heparin sq, SCDs GI prophylaxis: PPI Central Line:no Arterial Line:no Sanchez Cathetor: yes Disposition: ICU for respiratory failure Code Status: DNR/DNI Total Critical Care time is 35 minutes, excluding procedures/teaching Jordon Doss MD Wind Site Manager (Electronically Signed)
--- NOTE | 2016-07-04 12:34 | RAD ---
INDICATION: Congestive heart failure COMPARISON: July 03, 2016 TECHNIQUE: An AP portable view obtained at 1025 hours is submitted. FINDINGS: Bones/Soft Tissues: There are no acute bony findings. The soft tissues are unchanged. Cardiomediastinal: The cardiomediastinal silhouette is normal. Lungs: There are no infiltrates. Pleura: There are no pleural effusions. Other: None IMPRESSION: NO ACTIVE DISEASE.
[2016-07-04] MEDS: guaiFENesin ER TAB 600 MG PO SCH ×2 (14:42→21:47)
[2016-07-04] MEDS: Levothyroxine TAB* 50 MCG TAB PO SCH (14:42)
[2016-07-04] MEDS ORDERED: Perflutren Lipid Microsphere* 3 ML VIAL ONE (15:41)
--- NOTE | 2016-07-04 17:22 | ECHO ---
Patient: ANUSHKA MARTIN [facility] Rec#: [id number] : 1945 Date: 07/04/2016 Age: 70y Height: 167.64 cm / 66.0 in Weight: 97.98 kg / 215.9 lbs Sex: M BSA: 2.07 Room#: ICU 7 Admit Date#: 07/04/2016 Type: Inpatient Referring: Jordon Doss Reading: Abi Mora MD Cattle Sprayer: Arabella Fishman,AMRIKCS,RDMS CC: John Donahue DO Transthoracic Echocardiogram Indication: Respiratory failure BP: 121/93 HR: 96 Rhythm: NSR with PVCs Indications Respiratory Abnormality Findings History: Pulmonary edema, CHF, CVA, mental retardation Technical Comments: The study is technically limited due to poor acoustic windows. Completed 1630 Left Ventricle: The left ventricular chamber size is normal. Mild concentric left ventricular hypertrophy is observed. The left ventricle appears hyperdynamic.No focal wall motion abnormalities noted. The estimated ejection fraction is 60-65%. There is an E to A reversal in the mitral valve flow pattern suggestive of diastolic dysfunction. Left Atrium: The left atrial chamber size is normal. Right Ventricle: The right ventricular cavity size is normal. The right ventricular global systolic function is hyperdynamic. Right Atrium: The right atrial cavity size is normal. Aortic Valve: The aortic valve leaflets are mildly thickened. There is mild to moderate aortic regurgitation. There is mild aortic stenosis. Mitral Valve: The mitral valve leaflets appear normal. There is mild mitral regurgitation. Possibley greater, eccentric jet. There is no evidence of mitral stenosis. Tricuspid Valve: The tricuspid valve leaflets are normal. There is mild tricuspid regurgitation. The tricuspid regurgitant jet is directed toward the septum. No pulmonary hypertension is noted. Pulmonic Valve: The pulmonic valve structure is not well visualized. Pericardium: There is no significant pericardial effusion. Aorta: The ascending aorta is not well visualized. There is no dilatation of the aortic arch. The aortic root is normal in size. Pulmonary Artery: The main pulmonary artery is not well visualized. Venous: The inferior vena cava is not visualized. Contrast: Definity was used to optimize study. A total of 3 ml was used Conclusions Technically limited study due to body habitus. Mild concentric left ventricular hypertrophy is observed. The left ventricle appears hyperdynamic with grossly normal wall motion. The estimated ejection fraction is 65%. There is an E to A reversal in the mitral valve flow pattern suggestive of diastolic dysfunction. The right ventricular global systolic function is hyperdynamic. There is mild aortic stenosis: mean gradient 7 mmHg, JERAMIE 1.9 cm2. There is mild to moderate aortic regurgitation, P 1/2 suggestive of moderate, lack of reversal of flow in the descending aorta suggestive of mild. There is mild mitral regurgitation. There is mild tricuspid regurgitation. No prior echo to compare. Measurements Name Value Normal Range RVIDd (AP) 2D 2.9 cm (0.9 - 2.6) RVDdMajor (2D) 2.6 cm (2.2 - 4.4) RAd ISD 4CH 3.8 cm (3.4 - 4.9) RA (A4C)W 3.7 cm (2.9 - 4.6) IVSd (2D) 1.2 cm (0.6 - 1) LVPWd (2D) 1.3 cm (0.6 - 1) LVIDd (2D) 3.9 cm (3.6 - 5.4) LVIDs (2D) 3.4 cm - LV FS (2D) 14 % (25 - 45) Aortic Annulus 2.3 cm (1.4 - 2.6) Ao root diameter (2D) 3.3 cm (2.1 - 3.5) Aortic arch 2.7 cm (1.8 - 3.4) LA dimension (AP) 2D 2.7 cm (2.3 - 3.8) LAd ISD 4CH 5.2 cm (2.9 - 5.3) LA ISD 4CH W 3.3 cm (2.5 - 4.5) Name Value Normal Range LA ESV SP 4CH (A/L) 33.98 ml - LA ESV SP 2CH (A/L) 30 ml - LA ESV BP (A/L) 36.13 ml - LA ESV BP (A/L) index 17.5 ml/m2 - LA ESV SP 4CH (MOD) 30.34 ml - LA ESV SP 2CH (MOD) 26.76 ml - Name Value Normal Range MV E-wave Vmax 0.5 m/sec - MV deceleration time 78.5 msec - MV A-wave Vmax 1.1 m/sec - MV E:A ratio 0.5 ratio - LV septal e' Vmax 0.05 m/sec - LV lateral e' Vmax 0.06 m/sec - LV E:e' septal ratio 10 ratio - LV E:e' lateral ratio 8.3 ratio - Name Value Normal Range AV Vmax 1.9 m/sec - AV VTI 33 cm - AV peak gradient 14 mmHg - AV mean gradient 7.3 mmHg - LVOT diameter 2.2 cm - LVOT Vmax 1.1 m/sec - LVOT VTI 20 cm - LVOT peak gradient 5 mmHg - LVOT mean gradient 2.8 mmHg - DOI (VTI) 0.6 ratio - JERAMIE (continuity Vmax) 2.2 cm2 - JERAMIE (continuity VTI) 2.3 cm2 - AR PHT 394.1 msec - AR peak gradient 50.62 mmHg - DIGNA Vmax 1.4 m/sec - Name Value Normal Range MV Vmax 1.5 m/sec - MV VTI 25.8 cm - MV peak gradient 9 mmHg - MV mean gradient 4.6 mmHg - MV PHT 14 msec - MR Vmax 4.76 m/sec - MR VTI 122.47 cm - MVA (PHT) 15 cm2 - MVA (continuity VTI) 2.8 cm2 - Name Value Normal Range TR Vmax 2.4 m/sec - TR peak gradient 23 mmHg - RAP 8 mmHg - RVSP 31 mmHg -
[2016-07-04] MEDS: Heparin VIAL(*) 5000 UNITS/ML VIAL (FIVE THOUSAND) SUBCUT SCH (21:47)
[2016-07-04] MEDS: Spironolactone TAB* 25 MG PO SCH (21:47)
[2016-07-05] MEDS: Piperac/Tazob 3.375 gm in NS* 3.375 GM/100 ML BAG IVPB SCH ×4 (00:54→23:55)
[2016-07-05] MEDS: Levothyroxine TAB* 50 MCG TAB PO SCH (05:38)
[2016-07-05] MEDS ORDERED: Heparin VIAL(*) 5000 UNITS/ML VIAL (FIVE THOUSAND) SUBCUT SCH (06:00)
[2016-07-05 06:10] LABS: Hematocrit 35 % (42-52); Hemoglobin 11.8 g/dl (14.0-18.0); Mean Corpuscular HGB Conc 33 g/dl (31-36); Mean Corpuscular Hemoglobin 33 pg (27-31); Mean Corpuscular Volume 99 fL (80-94); Mean Platelet Volume 11 um3 (7.4-10.4); Red Blood Count 3.57 10^6/ul (4.0-5.4); Red Cell Distribution Width 16 % (10.5-15); White Blood Count 5.2 10^3/ul (3.5-10.8)
[2016-07-05 06:13] LABS: Comments Flag Yes
[2016-07-05 06:22] LABS: BUN/Creatinine Ratio 29.1 (8-20); Calcium 8.7 mg/dL (8.6-10.3); EGFR African American 112.4 (>60); EGFR Non-African American 87.4 (>60); Potassium 3.8 mmol/L (3.5-5.0)
[2016-07-05 06:58] LABS: TSH (Thyroid Stimulating Horm) 9.11 mcIU/mL (0.34-5.60)
[2016-07-05 07:10] LABS: Free T4 1.09 ng/dL (0.61-1.12)
[2016-07-05] MEDS: Famotidine SUSP* 40 MG/5 ML ORAL.SUSP PEG TUBE SCH (08:10)
[2016-07-05] MEDS: Heparin VIAL(*) 5000 UNITS/ML VIAL (FIVE THOUSAND) SUBCUT SCH ×2 (08:11→21:53)
[2016-07-05] MEDS: Spironolactone TAB* 25 MG PO SCH ×2 (08:11→20:59)
--- NOTE | 2016-07-05 08:15 | RAD ---
Indication: Cough, fever, congestion. Cardiac and chronic respiratory disease. Comparison: July 04, 2016 Technique: Upright AP 0615 hours Report: Elevated lung volumes and mild prominence of the interstitial markings as well as patchy rarefaction. No focal pulmonary lesion, alveolar consolidation, pleural effusion, pneumothorax. Upper normal heart size. Unremarkable central pulmonary vasculature and mediastinal contours accounting for mild S-shaped curve of the thoracic spine convex to the RIGHT superiorly and to the LEFT at the distal segment. Eventration of the RIGHT hemidiaphragm with a colonic bowel loop interposed between the liver and the diaphragm; a normal variant. Unchanged large osteochondral loose body or conglomerate of osteochondral loose bodies at the axillary recess of the RIGHT glenohumeral joint IMPRESSION: Stigmata of obstructive lung disease. No acute pulmonary or cardiac process evident.
--- NOTE | 2016-07-05 08:45 | PN ---
Progress Note - Progress Note Note: Progress Note - Critical Care 24 hour events: -off bipap yesterday morning, remained on NC all day. secretions being suctioned -repeat cxr shows some intermittent congestion but no clear focal infiltration, no effusion, no ptx -started back on feeds and medications -made urine, negative balance -appears comfortable, on NC, no distress, nonverbal; no other overnight events noted. Tele: NSR with bigeminy Vitals: Vital Signs Temp 98.6 F 07/05/16 07:00 Pulse 64 07/05/16 07:00 Resp 23 07/05/16 07:00 BP 106/55 07/05/16 07:00 Pulse Ox 98 07/05/16 07:00 Intake & Output 07/04/16 07/05/16 07/05/16 18:59 06:59 18:59 Intake Total 881 Output Total 475 550 Balance -475 331 Weight 219 lb 12.814 oz Intake: IV Fluids 210 ABX - ZOSYN 210 IVPB 46 ABX - ZOSYN 46 Tube Feeding 525 Tube Feeding Flush Amount 100 Output: Sanchez 475 550 O2/Vent: NC, sat 97%, rr 16 Infusions: none Current Medications: Acetaminophen (Tylenol Tab*) 650 mg PO Q6H PRN PRN Reason: FEVER/PAIN Albuterol (Ventolin 2.5 Mg/3 Ml Neb.Gaby*) 2.5 mg INH Q4H PRN PRN Reason: SOB/WHEEZING Famotidine (Pepcid Susp*) 20 mg PEG TUBE DAILY [facility] Last Admin: 07/05/16 08:10 Dose: 20 mg Guaifenesin (Mucinex*) 1,200 mg PO BID [facility] Last Admin: 07/04/16 21:47 Dose: Not Given Heparin Sodium (Porcine) (Heparin Vial(*)) 5,000 units SUBCUT Q12HR [facility] Last Admin: 07/05/16 08:11 Dose: 5,000 units Piperacillin Sod/Tazobactam Sod (Zosyn 3.375 Gm In Ns Premix*) 3.375 gm in 100 mls @ 25 mls/hr IVPB Q8H [facility] Last Admin: 07/05/16 08:10 Dose: 25 mls/hr Levothyroxine Sodium (Synthroid Tab*) 50 mcg PO DAILY@0600 [facility] Last Admin: 07/05/16 05:38 Dose: 50 mcg Ondansetron HCl (Zofran Inj*) 4 mg IV Q6H PRN PRN Reason: NAUSEA Spironolactone (Aldactone Tab*) 25 mg PO BID [facility] Last Admin: 07/05/16 08:11 Dose: 25 mg Physical Exam: General: awake, semialert, no distress, no diaphoresis; nonverbal, doesnt follow commands. Head: normocephalic, atraumatic HEENT: no pallor, no icterus, moist mucous membranes Neck: soft, supple, no jvd, no stridor CVS: normal rate, normal rhythm, no murmur Resp: bilateral air entry, no rhales, no wheeze, coarse breath sounds but no rhonchi, no acc muscle use Abdomen: soft, nontender, slightly tense, BS+; Gtube + Ext: pulses+, warm, edema2+ mostly at feed than legs Skin: intact, no breakdown, no dryness Neuro: awake, semialert, doesnt follow commands, not verbal, moving some ext Labs: Laboratory Results - last 24 hr 07/04/16 07/05/16 07/05/16 04:20 05:36 05:36 WBC RBC Hgb Hct MCV MCH MCHC RDW Plt Count MPV Sodium 138 Potassium 3.8 Chloride 100 L Carbon Dioxide 29 Anion Gap 9 BUN 25 H Creatinine 0.86 Est GFR ( Amer) 112.4 Est GFR (Non-Af Amer) 87.4 BUN/Creatinine Ratio 29.1 H Glucose 104 H Calcium 8.7 TSH Cancelled 9.11 H Free T4 Cancelled 1.09 Cortisol 16.46 07/05/16 05:36 WBC 5.2 RBC 3.57 L Hgb 11.8 L Hct 35 L MCV 99 H MCH 33 H MCHC 33 RDW 16 H Plt Count 74 L MPV 11 H Sodium Potassium Chloride Carbon Dioxide Anion Gap BUN Creatinine Est GFR ( Amer) Est GFR (Non-Af Amer) BUN/Creatinine Ratio Glucose Calcium TSH Free T4 Cortisol Imaging: cxr 07/03 8pm pulm congestion+, ?RLL infiltrate cxr 07/03 930pm improved pulm congestion; ?RLL infiltrate? cxr 07/05 - mild congestion, ? rll and left lower lobe infitlrate? no effusion. no ptx. simliar as first image. echo 07/04 - hyperdynamic LV, mild and AI, diastolic dysfunction noted. Assessment: 70y M w/pmhx of mental retardation, CHF, dysphagia s/p Gtube, h/o TB in past, h/o GI bleed/hemorrhoids; who presented to [facility] for respiratory distress from [facility] facility. Hypothermic, on NIV, given Lasix and transferred to [facility]. -Acute Hypoxic Respiratory Failure -Pulmonary Edema, improved -Acute decompensated LV diastolic heart failure, improved -aspiration pneumonia -Hypothermia, improving -Mental retardation Plan: Neuro- awake, baseline not very verbal. Nonfocal it seems. Cont to monitor. As per facility nurses they say baseline is minimal verbalization. Asp prec, neuro checks qshift. CVS- BP and HR stable. No hypotension. Congestion appears improved, good urine output with lasix. will restart PO lasix daily via peg. sanchez in place. Body temp improved. Resp- on NC now, no distress, off NIV for 24 hours; some thick dark secretions being suctioned. cont zosyn day 3 of 5. CXR reviewed. cont po lasix. ID- hypothermua improved, wbc 5. I suspect a component of aspiration also caused resp failure here, cont zosyn for 5 days and reassess for 7 days, but improving otherwise. sputum cx neg. GI- tube feeds jevity 1.2 @40cc/hour. GI prophylaxis. Asp prec. Renal- cont Lasix, edema+. Cr normal, K normal. Replete K as needed. Heme- stable hg. Thrombocytopenia at 74k, rising. Unclear reason, noted previous thrombocytopenia on previous admissions since February. Will avoid medications that may dec plt count. On PCN for now, plt already reduced on admission. Dec heparin sq to bid. Endo- cont synthroid. FS as needed. Noted TSH 9, last 4 on 04/2016. was patient getting synthroid supplement in assisted? need to have endocrine follow outpatient. cont synthroid and recheck in 2-4 weeks, may just need increased dosing. Musculsk- PT/OT, pressure ulcer prophylaxis Wounds- pressure ulcer prophylaxis. Nutrition- tube feeds DVT prophylaxis: heparin sq, SCDs GI prophylaxis: PPI Central Line:no Arterial Line:no Sanchez Cathetor: yes Disposition: stable for downgrade to medical floor Code Status: DNR/DNI Jordon Doss MD Manual Winder (Electronically Signed)
[2016-07-05] MEDS: guaiFENesin ER TAB 600 MG PO SCH ×2 (10:15→20:55)
[2016-07-05] MEDS ORDERED: Potassium Chloride LIQUID* 20 MEQ PACKET G TUBE ONE (13:00)
[2016-07-05] MEDS ORDERED: Furosemide IV* 10 MG/ML 2 ML VIAL (20 MG) IV ONE (13:00)
[2016-07-05] MEDS: Magnesium Oxide TAB* 400 MG PO SCH (20:59)
[2016-07-06] MEDS: Levothyroxine TAB* 50 MCG TAB PO SCH (06:08)
[2016-07-06 07:43] LABS: Hematocrit 36 % (42-52); Hemoglobin 11.8 g/dl (14.0-18.0); Mean Corpuscular HGB Conc 33 g/dl (31-36); Mean Corpuscular Hemoglobin 33 pg (27-31); Mean Corpuscular Volume 99 fL (80-94); Mean Platelet Volume 11 um3 (7.4-10.4); Red Blood Count 3.59 10^6/ul (4.0-5.4); Red Cell Distribution Width 16 % (10.5-15); White Blood Count 4.6 10^3/ul (3.5-10.8)
[2016-07-06 07:44] LABS: Comments Flag Yes
[2016-07-06 07:57] LABS: BUN/Creatinine Ratio 31.9 (8-20); EGFR Non-African American 112.7 (>60); Potassium 3.9 mmol/L (3.5-5.0)
[2016-07-06] MEDS: Piperac/Tazob 3.375 gm in NS* 3.375 GM/100 ML BAG IVPB SCH ×3 (08:12→23:57)
[2016-07-06] MEDS: Famotidine SUSP* 40 MG/5 ML ORAL.SUSP PEG TUBE SCH (08:15)
[2016-07-06] MEDS: Heparin VIAL(*) 5000 UNITS/ML VIAL (FIVE THOUSAND) SUBCUT SCH ×2 (08:16→21:00)
[2016-07-06] MEDS: Potassium Chloride LIQUID* 20 MEQ PACKET PEG TUBE SCH (08:19)
[2016-07-06] MEDS: Magnesium Oxide TAB* 400 MG PO SCH ×2 (08:19→21:00)
[2016-07-06] MEDS: Spironolactone TAB* 25 MG PO SCH ×2 (08:19→21:00)
[2016-07-06] MEDS ORDERED: Furosemide TAB* 20 MG PO SCH (09:00)
[2016-07-06] MEDS: guaiFENesin ER TAB 600 MG PO SCH (09:42)
--- NOTE | 2016-07-06 15:51 | PN ---
Subjective Date of Service: 07/06/16 Interval History: Pt does not answer any of my questions. Objective Active Medications: Acetaminophen (Tylenol Tab*) 650 mg PO Q6H PRN PRN Reason: FEVER/PAIN Albuterol (Ventolin 2.5 Mg/3 Ml Neb.Gaby*) 2.5 mg INH Q4H PRN PRN Reason: SOB/WHEEZING Famotidine (Pepcid Susp*) 20 mg PEG TUBE DAILY [facility] Last Admin: 07/06/16 08:15 Dose: 20 mg Furosemide (Lasix Tab*) 20 mg PO DAILY [facility] Last Admin: 07/06/16 08:18 Dose: 20 mg Heparin Sodium (Porcine) (Heparin Vial(*)) 5,000 units SUBCUT Q12HR [facility] Last Admin: 07/06/16 08:16 Dose: 5,000 units Piperacillin Sod/Tazobactam Sod (Zosyn 3.375 Gm In Ns Premix*) 3.375 gm in 100 mls @ 25 mls/hr IVPB Q8H [facility] Last Admin: 07/06/16 08:12 Dose: 25 mls/hr Levothyroxine Sodium (Synthroid Tab*) 50 mcg PO DAILY@0600 [facility] Last Admin: 07/06/16 06:08 Dose: 50 mcg Magnesium Oxide (Magox 400 Tab*) 400 mg PO BID [facility] Stop: 07/07/16 23:59 Last Admin: 07/06/16 08:19 Dose: 400 mg Ondansetron HCl (Zofran Inj*) 4 mg IV Q6H PRN PRN Reason: NAUSEA Potassium Chloride (Klor-Con Liquid*) 40 meq PEG TUBE DAILY [facility] Last Admin: 07/06/16 08:19 Dose: 40 meq Spironolactone (Aldactone Tab*) 25 mg PO BID [facility] Last Admin: 07/06/16 08:19 Dose: 25 mg Vital Signs 07/05/16 07/05/16 07/05/16 19:15 20:00 23:24 Temperature 97.3 F 97.3 F Pulse Rate 58 64 Respiratory 16 14 12 Rate Blood Pressure 102/45 117/71 (mmHg) O2 Sat by Pulse 98 99 Oximetry 07/06/16 07/06/16 07/06/16 03:29 07:26 08:00 Temperature 97.2 F 97.4 F Pulse Rate 66 65 Respiratory 16 16 16 Rate Blood Pressure 107/67 123/59 (mmHg) O2 Sat by Pulse 97 96 Oximetry 07/06/16 13:30 Temperature 97.6 F Pulse Rate 70 Respiratory 16 Rate Blood Pressure 106/64 (mmHg) O2 Sat by Pulse 96 Oximetry Oxygen Devices in Use Now: None Appearance: Elderly obese male lying in bed, with slightly gurgly respirations, but in NAD Eyes: No Scleral Icterus Ears/Nose/Mouth/Throat: Mucous Membranes Moist, - - poor dentition Respiratory: Symmetrical Chest Expansion and Respiratory Effort, Clear to Auscultation - with L>R lower lobe crackles Cardiovascular: NL Sounds; No Murmurs; No JVD, RRR, - - 2+ pitting edema of the feet Abdominal: NL Sounds; No Tenderness; No Distention, - - feeding tube in place Extremities: No Clubbing, Cyanosis Skin: No Nodules or Sclerosis Neurological: - - awake, non-verbal Result Diagrams: 07/06/16 07:27 07/06/16 07:27 Additional Lab and Data: Lab Results 07/03/16 07/04/16 07/04/16 Range/Units 23:40 00:16 00:16 WBC 3.1 L (3.5-10.8) 10^3/ul RBC 3.96 L (4.0-5.4) 10^6/ul Hgb 13.2 L (14.0-18.0) g/dl Hct 39 L (42-52) % MCV 99 H (80-94) fL MCH 33 H (27-31) pg MCHC 34 (31-36) g/dl RDW 16 H (10.5-15) % Plt Count 65 L (150-450) 10^3/ul MPV 12 H (7.4-10.4) um3 Neut % (Auto) 70.0 (38-83) % Lymph % (Auto) 19.5 L (25-47) % Cla[place]orne % (Auto) 9.1 H (1-9) % Eos % (Auto) 0.4 (0-6) % Baso % (Auto) 1.0 (0-2) % Absolute Neuts (auto) 2.1 (1.5-7.7) 10^3/ul Absolute Lymphs (auto) 0.6 L (1.0-4.8) 10^3/ul Absolute Monos (auto) 0.3 (0-0.8) 10^3/ul Absolute Eos (auto) 0 (0-0.6) 10^3/ul Absolute Basos (auto) 0 (0-0.2) 10^3/ul Absolute Nucleated RBC 0.01 10^3/ul Nucleated RBC % 0.4 INR (Anticoag Therapy) 0.87 L (0.89-1.11) APTT 43.3 H (26.0-36.3) seconds D-Dimer, Quantitative 209 (Less Than 230) ng/mL Sodium (133-145) mmol/L Potassium (3.5-5.0) mmol/L Chloride (101-111) mmol/L Carbon Dioxide (22-32) mmol/L Anion Gap (2-11) mmol/L BUN (6-24) mg/dL Creatinine (0.67-1.17) mg/dL Est GFR ( Amer) (>60) Est GFR (Non-Af Amer) (>60) BUN/Creatinine Ratio (8-20) Glucose (70-100) mg/dL Lactic Acid (0.5-2.0) mmol/L Calcium (8.6-10.3) mg/dL Magnesium (1.9-2.7) mg/dL Total Bilirubin (0.2-1.0) mg/dL AST (13-39) U/L ALT (7-52) U/L Alkaline Phosphatase (34-104) U/L Total Creatine Kinase (10-223) U/L CK-MB (CK-2) (0.6-6.3) ng/mL Troponin I (<0.04) ng/mL C-Reactive Protein (< 5.00) mg/L B-Natriuretic Peptide ( - 100) pg/mL Total Protein (6.4-8.9) g/dL Albumin (3.2-5.2) g/dL Globulin (2-4) g/dL Albumin/Globulin Ratio (1-3) Lipase (11.0-82.0) U/L TSH (0.34-5.60) mcIU/mL Urine Color Yellow Urine Appearance Clear Urine pH 7.0 (5-9) Ur Specific Roscoe 1.010 (1.010-1.030) Urine Protein Negative (Negative) Urine Ketones Negative (Negative) Urine Blood Negative (Negative) Urine Nitrate Negative (Negative) Urine Bilirubin Negative (Negative) Urine Urobilinogen Negative (Negative) Ur Leukocyte Esterase Negative (Negative) Urine Glucose Negative (Negative) Urine Ascorbic Acid * H (Negative) 07/04/16 07/04/16 07/04/16 Range/Units 00:16 00:16 00:16 WBC (3.5-10.8) 10^3/ul RBC (4.0-5.4) 10^6/ul Hgb (14.0-18.0) g/dl Hct (42-52) % MCV (80-94) fL MCH (27-31) pg MCHC (31-36) g/dl RDW (10.5-15) % Plt Count (150-450) 10^3/ul MPV (7.4-10.4) um3 Neut % (Auto) (38-83) % Lymph % (Auto) (25-47) % Claiborne % (Auto) (1-9) % Eos % (Auto) (0-6) % Baso % (Auto) (0-2) % Absolute Neuts (auto) (1.5-7.7) 10^3/ul Absolute Lymphs (auto) (1.0-4.8) 10^3/ul Absolute Monos (auto) (0-0.8) 10^3/ul Absolute Eos (auto) (0-0.6) 10^3/ul Absolute Basos (auto) (0-0.2) 10^3/ul Absolute Nucleated RBC 10^3/ul Nucleated RBC % INR (Anticoag Therapy) (0.89-1.11) APTT (26.0-36.3) seconds D-Dimer, Quantitative (Less Than 230) ng/mL Sodium 133 (133-145) mmol/L Potassium 3.9 (3.5-5.0) mmol/L Chloride 95 L (101-111) mmol/L Carbon Dioxide 32 (22-32) mmol/L Anion Gap 6 (2-11) mmol/L BUN 23 (6-24) mg/dL Creatinine 0.58 L (0.67-1.17) mg/dL Est GFR ( Amer) 177.1 (>60) Est GFR (Non-Af Amer) 137.7 (>60) BUN/Creatinine Ratio 39.7 H (8-20) Glucose 78 (70-100) mg/dL Lactic Acid 1.1 (0.5-2.0) mmol/L Calcium 9.3 (8.6-10.3) mg/dL Magnesium 2.5 (1.9-2.7) mg/dL Total Bilirubin 0.50 (0.2-1.0) mg/dL AST 55 H (13-39) U/L ALT 62 H (7-52) U/L Alkaline Phosphatase 222 H (34-104) U/L Total Creatine Kinase 25 (10-223) U/L CK-MB (CK-2) 8.7 H (0.6-6.3) ng/mL Troponin I 0.01 (<0.04) ng/mL C-Reactive Protein 19.66 H (< 5.00) mg/L B-Natriuretic Peptide 42 ( - 100) pg/mL Total Protein 7.3 (6.4-8.9) g/dL Albumin 3.2 (3.2-5.2) g/dL Globulin 4.1 H (2-4) g/dL Albumin/Globulin Ratio 0.8 L (1-3) Lipase 14 (11.0-82.0) U/L TSH 9.45 H (0.34-5.60) mcIU/mL Urine Color Urine Appearance Urine pH (5-9) Ur Specific Roscoe (1.010-1.030) Urine Protein (Negative) Urine Ketones (Negative) Urine Blood (Negative) Urine Nitrate (Negative) Urine Bilirubin (Negative) Urine Urobilinogen (Negative) Ur Leukocyte Esterase (Negative) Urine Glucose (Negative) Urine Ascorbic Acid (Negative) Microbiology and Other Data: Microbiology 07/04/16 05:10 Aerobic Blood Culture - Preliminary Blood Venous No Growth Day 2 Anaerobic Blood Culture - Preliminary No Growth Day 2 Blood Culture - Final 07/04/16 04:20 Aerobic Blood Culture - Preliminary Blood Venous No Growth Day 2 Anaerobic Blood Culture - Preliminary No Growth Day 2 Blood Culture - Final 07/04/16 19:20 Gram Stain - Final Sputum 07/04/16 04:35 Legionella Urinary Antigen - Final Urine Negative Legionella Streptococcus pneumoniae Ag Screen - Final Negative S. pneumo Antigen 07/04/16 03:00 Nasal Screen MRSA (PCR)(FIL[facility]) - Final Nasal Mrsa Negative Assess/Plan/Problems-Billing Mr Leal is a 70 yo M who has a h/o intellectual developmental delay, hypothyroidism, dysphagia s/p PEG placement, CHF, hypothyroidism and chronic constipation who presented to the ER with c/o tachypnea as noticed by his shelter staff. - Patient Problems (1) Acute respiratory failure with hypoxia Current Visit: Yes Status: Acute Code(s): J96.01 - ACUTE RESPIRATORY FAILURE WITH HYPOXIA SNOMED Code(s): 88211409 Comment: The patient presented with acute hypoxic respiratory failure requiring BiPAP. He is no longer even requiring supplemental O2. It was felt the respiratory failure was secondary to acute diastolic CHF and possibly aspiration pneumonia. (2) Acute diastolic CHF (congestive heart failure) Current Visit: Yes Status: Acute Code(s): I50.31 - ACUTE DIASTOLIC ( CONGESTIVE) HEART FAILURE SNOMED Code(s): 920545031 Comment: The patient's echo showed diastolic dysfunction. He has been diuresed over the course of this hospitalization. His respiratory status is improved following diuresis. Increase lasix back to home dose of 40mg daily. Continue current dose of spironolactone. (3) Aspiration pneumonia Current Visit: Yes Status: Acute Code(s): J69.0 - PNEUMONITIS DUE TO INHALATION OF FOOD AND VOMIT SNOMED Code(s): 137048553 Comment: Today is D#4/5-7 days of zosyn. Sputum culture is negative. His respiratory status is improving though he still has gurgly respirations. Continue to monitor his respiratory status. (4) Thrombocytopenia Current Visit: Yes Status: Acute Code(s): D69.6 - THROMBOCYTOPENIA, UNSPECIFIED SNOMED Code(s): 370734127 Comment: The patient had thrombocytopenia in 02/2016 and it has been persistent this hospitalization. Plt count is stable. ? cause-?infection. Will continue to follow for now. (5) Hypothyroidism Current Visit: Yes Status: Acute Code(s): E03.9 - HYPOTHYROIDISM, UNSPECIFIED SNOMED Code(s): 33183959 Comment: TSH is elevated but free T4 is normal. ? acute rise in TSH secondary to being critically ill on admission. Will continue current dose of synthroid but will need to follow up TSH in about 4 weeks. (6) Mental retardation Current Visit: Yes Status: Acute Code(s): F79 - UNSPECIFIED INTELLECTUAL DISABILITIES SNOMED Code(s): 82120321 Comment: Continue tube feeds for chronic dysphagia. Continue supportive care. (7) DVT prophylaxis Current Visit: Yes Status: Acute Code(s): COF1750 - SNOMED Code(s): 756753369 Comment: SQ heparin (8) DNR (do not resuscitate) Current Visit: Yes Status: Acute
[2016-07-07] MEDS: Levothyroxine TAB* 50 MCG TAB PO SCH (05:58)
[2016-07-07] MEDS: Piperac/Tazob 3.375 gm in NS* 3.375 GM/100 ML BAG IVPB SCH (08:32)
[2016-07-07] MEDS: Famotidine SUSP* 40 MG/5 ML ORAL.SUSP PEG TUBE SCH (08:39)
[2016-07-07] MEDS: Furosemide TAB* 40 MG PO SCH (08:39)
[2016-07-07] MEDS: Spironolactone TAB* 25 MG PO SCH ×2 (08:39→21:21)
[2016-07-07] MEDS: Magnesium Oxide TAB* 400 MG PO SCH ×2 (08:39→21:21)
[2016-07-07] MEDS: Potassium Chloride LIQUID* 20 MEQ PACKET PEG TUBE SCH (08:40)
[2016-07-07] MEDS: Heparin VIAL(*) 5000 UNITS/ML VIAL (FIVE THOUSAND) SUBCUT SCH ×2 (08:40→21:22)
[2016-07-07] MEDS ORDERED: Magnesium Hydroxide LIQ* 30 ML UDC G TUBE ONE (13:43)
--- NOTE | 2016-07-07 15:07 | PN ---
Subjective Date of Service: 07/07/16 Interval History: Pt asks me what my name is and asks for another sheet but does not answer any of my questions. Objective Active Medications: Acetaminophen (Tylenol Tab*) 650 mg PO Q6H PRN PRN Reason: FEVER/PAIN Albuterol (Ventolin 2.5 Mg/3 Ml Neb.Gaby*) 2.5 mg INH Q4H PRN PRN Reason: SOB/WHEEZING Famotidine (Pepcid Susp*) 20 mg PEG TUBE DAILY [facility] Last Admin: 07/07/16 08:39 Dose: 20 mg Furosemide (Lasix Tab*) 40 mg PO DAILY [facility] Last Admin: 07/07/16 08:39 Dose: 40 mg Heparin Sodium (Porcine) (Heparin Vial(*)) 5,000 units SUBCUT Q12HR [facility] Last Admin: 07/07/16 08:40 Dose: 5,000 units Piperacillin Sod/Tazobactam Sod (Zosyn 3.375 Gm In Ns Premix*) 3.375 gm in 100 mls @ 25 mls/hr IVPB Q8H [facility] Last Admin: 07/07/16 08:32 Dose: 25 mls/hr Levothyroxine Sodium (Synthroid Tab*) 50 mcg PO DAILY@0600 [facility] Last Admin: 07/07/16 05:58 Dose: 50 mcg Magnesium Oxide (Magox 400 Tab*) 400 mg PO BID [facility] Stop: 07/07/16 23:59 Last Admin: 07/07/16 08:39 Dose: 400 mg Ondansetron HCl (Zofran Inj*) 4 mg IV Q6H PRN PRN Reason: NAUSEA Polyethylene Glycol/Electrolytes (Miralax*) 17 gm G TUBE DAILY [facility] Potassium Chloride (Klor-Con Liquid*) 40 meq PEG TUBE DAILY [facility] Last Admin: 07/07/16 08:40 Dose: 40 meq Spironolactone (Aldactone Tab*) 25 mg PO BID [facility] Last Admin: 07/07/16 08:39 Dose: 25 mg Vital Signs 07/06/16 07/06/16 07/06/16 16:10 19:52 20:00 Temperature 96.3 F Pulse Rate 67 65 Respiratory 18 14 Rate Blood Pressure 115/74 129/69 (mmHg) O2 Sat by Pulse 97 96 Oximetry 07/06/16 07/07/16 07/07/16 23:19 03:44 06:21 Temperature 97.0 F 96.8 F 97.5 F Pulse Rate 69 70 72 Respiratory 20 18 20 Rate Blood Pressure 136/73 133/70 134/49 (mmHg) O2 Sat by Pulse 97 96 93 Oximetry 07/07/16 07/07/16 08:00 12:13 Temperature 97.5 F Pulse Rate 73 Respiratory 18 16 Rate Blood Pressure 156/63 (mmHg) O2 Sat by Pulse 94 Oximetry Oxygen Devices in Use Now: None Appearance: Elderly obese male lying in bed, NAD Eyes: No Scleral Icterus, - - some opacification of the cornea, conjuctiva are slightly injected Ears/Nose/Mouth/Throat: Mucous Membranes Moist Respiratory: Symmetrical Chest Expansion and Respiratory Effort, Clear to Auscultation - few RLL crackles Cardiovascular: NL Sounds; No Murmurs; No JVD, RRR, - - 2+ pitting edema of the feet Abdominal: NL Sounds; No Tenderness; No Distention, - - G tube in place Extremities: No Clubbing, Cyanosis Skin: No Rash or Ulcers, No Nodules or Sclerosis Neurological: - - alert, speaks some, somewhat dysarthric Result Diagrams: 07/06/16 07:27 07/06/16 07:27 Additional Lab and Data: Lab Results 07/03/16 07/04/16 07/04/16 Range/Units 23:40 00:16 00:16 WBC 3.1 L (3.5-10.8) 10^3/ul RBC 3.96 L (4.0-5.4) 10^6/ul Hgb 13.2 L (14.0-18.0) g/dl Hct 39 L (42-52) % MCV 99 H (80-94) fL MCH 33 H (27-31) pg MCHC 34 (31-36) g/dl RDW 16 H (10.5-15) % Plt Count 65 L (150-450) 10^3/ul MPV 12 H (7.4-10.4) um3 Neut % (Auto) 70.0 (38-83) % Lymph % (Auto) 19.5 L (25-47) % [place] % (Auto) 9.1 H (1-9) % Eos % (Auto) 0.4 (0-6) % Baso % (Auto) 1.0 (0-2) % Absolute Neuts (auto) 2.1 (1.5-7.7) 10^3/ul Absolute Lymphs (auto) 0.6 L (1.0-4.8) 10^3/ul Absolute Monos (auto) 0.3 (0-0.8) 10^3/ul Absolute Eos (auto) 0 (0-0.6) 10^3/ul Absolute Basos (auto) 0 (0-0.2) 10^3/ul Absolute Nucleated RBC 0.01 10^3/ul Nucleated RBC % 0.4 INR (Anticoag Therapy) 0.87 L (0.89-1.11) APTT 43.3 H (26.0-36.3) seconds D-Dimer, Quantitative 209 (Less Than 230) ng/mL Sodium (133-145) mmol/L Potassium (3.5-5.0) mmol/L Chloride (101-111) mmol/L Carbon Dioxide (22-32) mmol/L Anion Gap (2-11) mmol/L BUN (6-24) mg/dL Creatinine (0.67-1.17) mg/dL Est GFR ( Amer) (>60) Est GFR (Non-Af Amer) (>60) BUN/Creatinine Ratio (8-20) Glucose (70-100) mg/dL Lactic Acid (0.5-2.0) mmol/L Calcium (8.6-10.3) mg/dL Magnesium (1.9-2.7) mg/dL Total Bilirubin (0.2-1.0) mg/dL AST (13-39) U/L ALT (7-52) U/L Alkaline Phosphatase (34-104) U/L Total Creatine Kinase (10-223) U/L CK-MB (CK-2) (0.6-6.3) ng/mL Troponin I (<0.04) ng/mL C-Reactive Protein (< 5.00) mg/L B-Natriuretic Peptide ( - 100) pg/mL Total Protein (6.4-8.9) g/dL Albumin (3.2-5.2) g/dL Globulin (2-4) g/dL Albumin/Globulin Ratio (1-3) Lipase (11.0-82.0) U/L TSH (0.34-5.60) mcIU/mL Urine Color Yellow Urine Appearance Clear Urine pH 7.0 (5-9) Ur Specific [place] 1.010 (1.010-1.030) Urine Protein Negative (Negative) Urine Ketones Negative (Negative) Urine Blood Negative (Negative) Urine Nitrate Negative (Negative) Urine Bilirubin Negative (Negative) Urine Urobilinogen Negative (Negative) Ur Leukocyte Esterase Negative (Negative) Urine Glucose Negative (Negative) Urine Ascorbic Acid * H (Negative) 07/04/16 07/04/16 07/04/16 Range/Units 00:16 00:16 00:16 WBC (3.5-10.8) 10^3/ul RBC (4.0-5.4) 10^6/ul Hgb (14.0-18.0) g/dl Hct (42-52) % MCV (80-94) fL MCH (27-31) pg MCHC (31-36) g/dl RDW (10.5-15) % Plt Count (150-450) 10^3/ul MPV (7.4-10.4) um3 Neut % (Auto) (38-83) % Lymph % (Auto) (25-47) % [place] % (Auto) (1-9) % Eos % (Auto) (0-6) % Baso % (Auto) (0-2) % Absolute Neuts (auto) (1.5-7.7) 10^3/ul Absolute Lymphs (auto) (1.0-4.8) 10^3/ul Absolute Monos (auto) (0-0.8) 10^3/ul Absolute Eos (auto) (0-0.6) 10^3/ul Absolute Basos (auto) (0-0.2) 10^3/ul Absolute Nucleated RBC 10^3/ul Nucleated RBC % INR (Anticoag Therapy) (0.89-1.11) APTT (26.0-36.3) seconds D-Dimer, Quantitative (Less Than 230) ng/mL Sodium 133 (133-145) mmol/L Potassium 3.9 (3.5-5.0) mmol/L Chloride 95 L (101-111) mmol/L Carbon Dioxide 32 (22-32) mmol/L Anion Gap 6 (2-11) mmol/L BUN 23 (6-24) mg/dL Creatinine 0.58 L (0.67-1.17) mg/dL Est GFR ( Amer) 177.1 (>60) Est GFR (Non-Af Amer) 137.7 (>60) BUN/Creatinine Ratio 39.7 H (8-20) Glucose 78 (70-100) mg/dL Lactic Acid 1.1 (0.5-2.0) mmol/L Calcium 9.3 (8.6-10.3) mg/dL Magnesium 2.5 (1.9-2.7) mg/dL Total Bilirubin 0.50 (0.2-1.0) mg/dL AST 55 H (13-39) U/L ALT 62 H (7-52) U/L Alkaline Phosphatase 222 H (34-104) U/L Total Creatine Kinase 25 (10-223) U/L CK-MB (CK-2) 8.7 H (0.6-6.3) ng/mL Troponin I 0.01 (<0.04) ng/mL C-Reactive Protein 19.66 H (< 5.00) mg/L B-Natriuretic Peptide 42 ( - 100) pg/mL Total Protein 7.3 (6.4-8.9) g/dL Albumin 3.2 (3.2-5.2) g/dL Globulin 4.1 H (2-4) g/dL Albumin/Globulin Ratio 0.8 L (1-3) Lipase 14 (11.0-82.0) U/L TSH 9.45 H (0.34-5.60) mcIU/mL Urine Color Urine Appearance Urine pH (5-9) Ur Specific [place] (1.010-1.030) Urine Protein (Negative) Urine Ketones (Negative) Urine Blood (Negative) Urine Nitrate (Negative) Urine Bilirubin (Negative) Urine Urobilinogen (Negative) Ur Leukocyte Esterase (Negative) Urine Glucose (Negative) Urine Ascorbic Acid (Negative) Microbiology and Other Data: Microbiology 07/04/16 05:10 Aerobic Blood Culture - Preliminary Blood Venous No Growth Day 2 Anaerobic Blood Culture - Preliminary No Growth Day 2 Blood Culture - Final 07/04/16 04:20 Aerobic Blood Culture - Preliminary Blood Venous No Growth Day 2 Anaerobic Blood Culture - Preliminary No Growth Day 2 Blood Culture - Final 07/04/16 19:20 Gram Stain - Final Sputum 07/04/16 04:35 Legionella Urinary Antigen - Final Urine Negative Legionella Streptococcus pneumoniae Ag Screen - Final Negative S. pneumo Antigen 07/04/16 03:00 Nasal Screen MRSA (PCR)(FILIPE) - Final Nasal Mrsa Negative Assess/Plan/Problems-Billing Mr Leal is a 70 yo M who has a h/o intellectual developmental delay, hypothyroidism, dysphagia s/p PEG placement, CHF, hypothyroidism and chronic constipation who presented to the ER with c/o tachypnea as noticed by his [facility] staff. - Patient Problems (1) Acute respiratory failure with hypoxia Current Visit: Yes Status: Acute Code(s): J96.01 - ACUTE RESPIRATORY FAILURE WITH HYPOXIA SNOMED Code(s): 14375145 Comment: The patient presented with acute hypoxic respiratory failure requiring BiPAP. He is no longer even requiring supplemental O2. It was felt the respiratory failure was secondary to acute diastolic CHF and possibly aspiration pneumonia. (2) Acute diastolic CHF (congestive heart failure) Current Visit: Yes Status: Acute Code(s): I50.31 - ACUTE DIASTOLIC ( CONGESTIVE) HEART FAILURE SNOMED Code(s): 017431672 Comment: The patient's echo showed diastolic dysfunction. He has been diuresed over the course of this hospitalization. His respiratory status is stable. Continue lasix 40mg daily. (3) Aspiration pneumonia Current Visit: Yes Status: Acute Code(s): J69.0 - PNEUMONITIS DUE TO INHALATION OF FOOD AND VOMIT SNOMED Code(s): 615644101 Comment: Today is D#5/5 days of zosyn. Sputum culture grew corynebacterium-? contaminant. His respiratory status is stable though he still has gurgly respirations. will stop the zosyn today and monitor his respiratory status and make sure his WBC count/temperature remain normal. (4) Thrombocytopenia Current Visit: Yes Status: Acute Code(s): D69.6 - THROMBOCYTOPENIA, UNSPECIFIED SNOMED Code(s): 227929091 Comment: The patient had thrombocytopenia in 02/2016 and it has been persistent this hospitalization. Plt count is stable. ? cause-?infection. Will continue to follow for now. (5) Hypothyroidism Current Visit: Yes Status: Acute Code(s): E03.9 - HYPOTHYROIDISM, UNSPECIFIED SNOMED Code(s): 70346548 Comment: TSH is elevated but free T4 is normal. ? acute rise in TSH secondary to being critically ill on admission. Will continue current dose of synthroid but will need to follow up TSH in about 4 weeks. (6) Mental retardation Current Visit: Yes Status: Acute Code(s): F79 - UNSPECIFIED INTELLECTUAL DISABILITIES SNOMED Code(s): 10656688 Comment: Continue tube feeds for chronic dysphagia. Continue supportive care. (7) DVT prophylaxis Current Visit: Yes Status: Acute Code(s): ZTJ1679 - SNOMED Code(s): 029988584 Comment: SQ heparin (8) DNR (do not resuscitate) Current Visit: Yes Status: Acute
[2016-07-07] MEDS: Polyethylene Glycol 3350* 17 GM PACKET G TUBE SCH (16:01)
[2016-07-08] MEDS: Levothyroxine TAB* 50 MCG TAB PO SCH (05:32)
[2016-07-08 05:48] LABS: Hematocrit 36 % (42-52); Hemoglobin 12.2 g/dl (14.0-18.0); Mean Corpuscular HGB Conc 34 g/dl (31-36); Mean Corpuscular Hemoglobin 34 pg (27-31); Mean Corpuscular Volume 99 fL (80-94); Mean Platelet Volume 10 um3 (7.4-10.4); Red Blood Count 3.63 10^6/ul (4.0-5.4); Red Cell Distribution Width 15 % (10.5-15)
[2016-07-08 05:53] LABS: Comments Flag Yes
[2016-07-08 06:02] LABS: BUN/Creatinine Ratio 30.2 (8-20); EGFR Non-African American 125.2 (>60); Potassium 4.3 mmol/L (3.5-5.0)
[2016-07-08] MEDS ORDERED: Levothyroxine TAB* 75 MCG TAB PO SCH (09:42)
[2016-07-08] MEDS ORDERED: Levothyroxine TAB* 25 MCG TAB PO ONE (09:42)
[2016-07-08] MEDS: Potassium Chloride LIQUID* 20 MEQ PACKET PEG TUBE SCH (09:53)
[2016-07-08] MEDS: Spironolactone TAB* 25 MG PO SCH ×2 (09:54→22:35)
[2016-07-08] MEDS: Heparin VIAL(*) 5000 UNITS/ML VIAL (FIVE THOUSAND) SUBCUT SCH ×2 (09:54→22:35)
[2016-07-08] MEDS: Polyethylene Glycol 3350* 17 GM PACKET G TUBE SCH (09:54)
[2016-07-08] MEDS: Famotidine SUSP* 40 MG/5 ML ORAL.SUSP PEG TUBE SCH (09:54)
[2016-07-08] MEDS: Furosemide TAB* 40 MG PO SCH (09:54)
--- NOTE | 2016-07-08 09:58 | PN ---
Subjective Date of Service: 07/08/16 Interval History: Patient not able to make his needs known. Objective Active Medications: Acetaminophen (Tylenol Tab*) 650 mg PO Q6H PRN PRN Reason: FEVER/PAIN Albuterol (Ventolin 2.5 Mg/3 Ml Neb.Gaby*) 2.5 mg INH Q4H PRN PRN Reason: SOB/WHEEZING Famotidine (Pepcid Susp*) 20 mg PEG TUBE DAILY [facility] Last Admin: 07/07/16 08:39 Dose: 20 mg Furosemide (Lasix Tab*) 40 mg PO DAILY [facility] Last Admin: 07/07/16 08:39 Dose: 40 mg Heparin Sodium (Porcine) (Heparin Vial(*)) 5,000 units SUBCUT Q12HR [facility] Last Admin: 07/07/16 21:22 Dose: 5,000 units Levothyroxine Sodium (Synthroid Tab*) 75 mcg PO DAILY@0600 [facility] Ondansetron HCl (Zofran Inj*) 4 mg IV Q6H PRN PRN Reason: NAUSEA Polyethylene Glycol/Electrolytes (Miralax*) 17 gm G TUBE DAILY [facility] Last Admin: 07/07/16 16:01 Dose: 17 gm Potassium Chloride (Klor-Con Liquid*) 40 meq PEG TUBE DAILY [facility] Last Admin: 07/07/16 08:40 Dose: 40 meq Spironolactone (Aldactone Tab*) 25 mg PO BID [facility] Last Admin: 07/07/16 21:21 Dose: 25 mg Vital Signs 07/07/16 07/07/16 07/07/16 12:13 12:34 19:39 Temperature 97.5 F 97.4 F Pulse Rate 73 70 Respiratory 16 18 16 Rate Blood Pressure 156/63 114/60 (mmHg) O2 Sat by Pulse 94 94 Oximetry 07/07/16 07/07/16 07/07/16 19:52 23:27 23:39 Temperature 96.9 F 97.8 F Pulse Rate 64 43 76 Respiratory 18 16 Rate Blood Pressure 156/76 102/52 (mmHg) O2 Sat by Pulse 99 95 Oximetry 07/08/16 07/08/16 07/08/16 03:44 07:22 08:00 Temperature 98.2 F 97.7 F Pulse Rate 77 77 Respiratory 12 16 16 Rate Blood Pressure 106/46 121/59 (mmHg) O2 Sat by Pulse 97 94 Oximetry Oxygen Devices in Use Now: None Appearance: Alert, partly up in bed. Neutral affect. Looks comfortable. Eyes: No Scleral Icterus Ears/Nose/Mouth/Throat: Clear Oropharnyx, Mucous Membranes Moist Neck: NL Appearance and Movements; NL JVP, No Thyroid Enlargement, Masses Respiratory: Symmetrical Chest Expansion and Respiratory Effort, Clear to Auscultation, Clear to Percussion Cardiovascular: NL Sounds; No Murmurs; No JVD, RRR, No Edema, - Extremities: - - Tr edema bilaterally. ? R foot sl larger than L. Neurological: NL Sensation - Fair intermittent eye contact. Very poor verbal abilities, mostly word salad. Passive. No tremor. Result Diagrams: 07/08/16 05:30 07/08/16 05:30 Additional Lab and Data: Lab Results 07/03/16 07/04/16 07/04/16 Range/Units 23:40 00:16 00:16 WBC 3.1 L (3.5-10.8) 10^3/ul RBC 3.96 L (4.0-5.4) 10^6/ul Hgb 13.2 L (14.0-18.0) g/dl Hct 39 L (42-52) % MCV 99 H (80-94) fL MCH 33 H (27-31) pg MCHC 34 (31-36) g/dl RDW 16 H (10.5-15) % Plt Count 65 L (150-450) 10^3/ul MPV 12 H (7.4-10.4) um3 Neut % (Auto) 70.0 (38-83) % Lymph % (Auto) 19.5 L (25-47) % [place] % (Auto) 9.1 H (1-9) % Eos % (Auto) 0.4 (0-6) % Baso % (Auto) 1.0 (0-2) % Absolute Neuts (auto) 2.1 (1.5-7.7) 10^3/ul Absolute Lymphs (auto) 0.6 L (1.0-4.8) 10^3/ul Absolute Monos (auto) 0.3 (0-0.8) 10^3/ul Absolute Eos (auto) 0 (0-0.6) 10^3/ul Absolute Basos (auto) 0 (0-0.2) 10^3/ul Absolute Nucleated RBC 0.01 10^3/ul Nucleated RBC % 0.4 INR (Anticoag Therapy) 0.87 L (0.89-1.11) APTT 43.3 H (26.0-36.3) seconds D-Dimer, Quantitative 209 (Less Than 230) ng/mL Sodium (133-145) mmol/L Potassium (3.5-5.0) mmol/L Chloride (101-111) mmol/L Carbon Dioxide (22-32) mmol/L Anion Gap (2-11) mmol/L BUN (6-24) mg/dL Creatinine (0.67-1.17) mg/dL Est GFR ( Amer) (>60) Est GFR (Non-Af Amer) (>60) BUN/Creatinine Ratio (8-20) Glucose (70-100) mg/dL Lactic Acid (0.5-2.0) mmol/L Calcium (8.6-10.3) mg/dL Magnesium (1.9-2.7) mg/dL Total Bilirubin (0.2-1.0) mg/dL AST (13-39) U/L ALT (7-52) U/L Alkaline Phosphatase (34-104) U/L Total Creatine Kinase (10-223) U/L CK-MB (CK-2) (0.6-6.3) ng/mL Troponin I (<0.04) ng/mL C-Reactive Protein (< 5.00) mg/L B-Natriuretic Peptide ( - 100) pg/mL Total Protein (6.4-8.9) g/dL Albumin (3.2-5.2) g/dL Globulin (2-4) g/dL Albumin/Globulin Ratio (1-3) Lipase (11.0-82.0) U/L TSH (0.34-5.60) mcIU/mL Urine Color Yellow Urine Appearance Clear Urine pH 7.0 (5-9) Ur Specific [place] 1.010 (1.010-1.030) Urine Protein Negative (Negative) Urine Ketones Negative (Negative) Urine Blood Negative (Negative) Urine Nitrate Negative (Negative) Urine Bilirubin Negative (Negative) Urine Urobilinogen Negative (Negative) Ur Leukocyte Esterase Negative (Negative) Urine Glucose Negative (Negative) Urine Ascorbic Acid * H (Negative) 07/04/16 07/04/16 07/04/16 Range/Units 00:16 00:16 00:16 WBC (3.5-10.8) 10^3/ul RBC (4.0-5.4) 10^6/ul Hgb (14.0-18.0) g/dl Hct (42-52) % MCV (80-94) fL MCH (27-31) pg MCHC (31-36) g/dl RDW (10.5-15) % Plt Count (150-450) 10^3/ul MPV (7.4-10.4) um3 Neut % (Auto) (38-83) % Lymph % (Auto) (25-47) % [place] % (Auto) (1-9) % Eos % (Auto) (0-6) % Baso % (Auto) (0-2) % Absolute Neuts (auto) (1.5-7.7) 10^3/ul Absolute Lymphs (auto) (1.0-4.8) 10^3/ul Absolute Monos (auto) (0-0.8) 10^3/ul Absolute Eos (auto) (0-0.6) 10^3/ul Absolute Basos (auto) (0-0.2) 10^3/ul Absolute Nucleated RBC 10^3/ul Nucleated RBC % INR (Anticoag Therapy) (0.89-1.11) APTT (26.0-36.3) seconds D-Dimer, Quantitative (Less Than 230) ng/mL Sodium 133 (133-145) mmol/L Potassium 3.9 (3.5-5.0) mmol/L Chloride 95 L (101-111) mmol/L Carbon Dioxide 32 (22-32) mmol/L Anion Gap 6 (2-11) mmol/L BUN 23 (6-24) mg/dL Creatinine 0.58 L (0.67-1.17) mg/dL Est GFR ( Amer) 177.1 (>60) Est GFR (Non-Af Amer) 137.7 (>60) BUN/Creatinine Ratio 39.7 H (8-20) Glucose 78 (70-100) mg/dL Lactic Acid 1.1 (0.5-2.0) mmol/L Calcium 9.3 (8.6-10.3) mg/dL Magnesium 2.5 (1.9-2.7) mg/dL Total Bilirubin 0.50 (0.2-1.0) mg/dL AST 55 H (13-39) U/L ALT 62 H (7-52) U/L Alkaline Phosphatase 222 H (34-104) U/L Total Creatine Kinase 25 (10-223) U/L CK-MB (CK-2) 8.7 H (0.6-6.3) ng/mL Troponin I 0.01 (<0.04) ng/mL C-Reactive Protein 19.66 H (< 5.00) mg/L B-Natriuretic Peptide 42 ( - 100) pg/mL Total Protein 7.3 (6.4-8.9) g/dL Albumin 3.2 (3.2-5.2) g/dL Globulin 4.1 H (2-4) g/dL Albumin/Globulin Ratio 0.8 L (1-3) Lipase 14 (11.0-82.0) U/L TSH 9.45 H (0.34-5.60) mcIU/mL Urine Color Urine Appearance Urine pH (5-9) Ur Specific [place] (1.010-1.030) Urine Protein (Negative) Urine Ketones (Negative) Urine Blood (Negative) Urine Nitrate (Negative) Urine Bilirubin (Negative) Urine Urobilinogen (Negative) Ur Leukocyte Esterase (Negative) Urine Glucose (Negative) Urine Ascorbic Acid (Negative) Microbiology and Other Data: Microbiology 07/04/16 05:10 Aerobic Blood Culture - Preliminary Blood Venous No Growth Day 2 Anaerobic Blood Culture - Preliminary No Growth Day 2 Blood Culture - Final 07/04/16 04:20 Aerobic Blood Culture - Preliminary Blood Venous No Growth Day 2 Anaerobic Blood Culture - Preliminary No Growth Day 2 Blood Culture - Final 07/04/16 19:20 Gram Stain - Final Sputum 07/04/16 04:35 Legionella Urinary Antigen - Final Urine Negative Legionella Streptococcus pneumoniae Ag Screen - Final Negative S. pneumo Antigen 07/04/16 03:00 Nasal Screen MRSA (PCR)(FILIPE) - Final Nasal Mrsa Negative Assess/Plan/Problems-Billing Mr Leal is a 70 yo M who has a h/o intellectual developmental delay, hypothyroidism, dysphagia s/p PEG placement, CHF, hypothyroidism and chronic constipation who presented to the ER with c/o tachypnea [facility]. - Patient Problems (1) Acute diastolic CHF (congestive heart failure) Current Visit: Yes Status: Acute Code(s): I50.31 - ACUTE DIASTOLIC ( CONGESTIVE) HEART FAILURE SNOMED Code(s): 843525881 Comment: The patient's echo showed diastolic dysfunction. He has been diuresed over the course of this hospitalization. His respiratory status is stable. Continue lasix 40mg daily. I note he is still having neg fluid balance while getting his home dose of furosemide and less spironolactone. I will discharge him on his usual doses of both, recommend daily weights with parameters, also BMP in 1 week. (2) Thrombocytopenia Current Visit: Yes Status: Acute Code(s): D69.6 - THROMBOCYTOPENIA, UNSPECIFIED SNOMED Code(s): 934719704 Comment: Possibly improving. The patient had thrombocytopenia in 02/2016 also. Needs outpt fup. (3) Hypothyroidism Current Visit: Yes Status: Acute Code(s): E03.9 - HYPOTHYROIDISM, UNSPECIFIED SNOMED Code(s): 48597974 Comment: TSH is elevated x 2. Increase levothyroxine dose 07/09 with extra 25 mcg 07/08. Follow up TSH in about 4 weeks. (4) Mental retardation Current Visit: Yes Status: Acute Code(s): F79 - UNSPECIFIED INTELLECTUAL DISABILITIES SNOMED Code(s): 44977961 Comment: Continue tube feeds for chronic dysphagia. Continue supportive care. (5) Aspiration pneumonia Current Visit: Yes Status: Acute Code(s): J69.0 - PNEUMONITIS DUE TO INHALATION OF FOOD AND VOMIT SNOMED Code(s): 537715981 Comment: Little supportive evidence for this. Had 1 dose of levofloxacin, a number of doses of pip/raegan. No antibiotic now. Status and Disposition: Discharge to be arranged for 07/09/[address].
--- NOTE | 2016-07-08 10:40 | PN ---
Progress Note - Progress Note Note: Time spent on discharge 50 minutes.
--- NOTE | 2016-07-08 14:31 | DS ---
DISCHARGE SUMMARY: DATE OF ADMISSION: 07/04/16 DATE OF DISCHARGE: HISTORY OF PRESENT ILLNESS: This 70-year-old male is a resident of [facility]. He has severe mental retardation. The staff noted he had increased respiratory rate during bathing and sent him to the [place] ED. On x -ray, he was found to have congestive heart failure and placed on BiPAP. He was sent here. He was given diuresis. He was also given antibiotics as it was not clear if he had aspiration pneumonia or not. The patient received one dose of levofloxacin and a number of doses of piperacillin- tazobactam. He was diuresed. He improved markedly. He has been off of oxygen completely the last few days of his hospital stay. I note his weight went from 216 to 210 while he was here. The patient seems quite stable. He continues on his tube feedings. I note that he never had a fever here. Also, his white blood count was never elevated. Chest x- rays were read as showing initially congestive heart failure with resolution. His BMP was low, but this may be factitious because of his obesity. The BMP values should be lower for obese people. The patient continued to have significant negative fluid balance despite being on actually less spironolactone and the same dose of furosemide that he was at home. I am not sure why that would be, but I certainly do not want to increase his diuretic regimen at this time. I am going to actually resume his usual spironolactone dose at home, which is bigger than here, and the same dose of furosemide, which is his usual home dose. I have asked for daily weights with parameters. If his weight goes up more than 3 pounds from the initial weight after this hospitalization, I recommended he be given an extra 40 mg of furosemide p.o. and at the same time call Dr. Donahue. If his weight decreases by more than 3 pounds from the initial weight after this hospitalization, I recommend the furosemide be held and also immediately call Dr. Donahue. I have suggested CBC and a BMP in 1 week to follow up on his congestive heart failure as well as his thrombocytopenia. His TSH was elevated on 2 separate occasions here. We have increased him to 75 mcg per day of levothyroxine. He should have a repeat TSH in 4 weeks. FINAL DIAGNOSES: 1. Acute diastolic congestive heart failure. 2. Thrombocytopenia. 3. Hypothyroidism. 4. Mental retardation. 5. Question of aspiration pneumonia. DISCHARGE MEDICATIONS: 1. Levothyroxine 75 mcg daily. 2. Spironolactone 50 mg b.i.d. 3. Potassium chloride liquid 20 mEq daily. 4. Furosemide 40 mg daily. 5. Stannous fluoride 0.4% daily. 6. Milk of magnesia 30 mL every 48 hours p.r.n. 7. Lotrimin 1% topical b.i.d. p.r.n. 8. Loprox 0.77% topical b.i.d. as needed. 9. Jevity 1.2 tube feedings as before. 10. Dulcolax suppository 10 mg every 72 hours p.r.n. 11. Docusate 5 mL b.i.d. 12. Debrox 6.5% otic 10 drops in the ear as prescribed. 13. Atrovent inhaler one puff q.i.d. p.r.n. 15. Aspirin 325 mg daily. 16. Artificial tears solution 2 drops both eyes b.i.d. 17. Aloe [place] protective apply daily p.r.n. [id number]/[facility] #: [id number] [facility]
[2016-07-09] MEDS: Furosemide TAB* 40 MG PO SCH (07:38)
[2016-07-09] MEDS: Spironolactone TAB* 25 MG PO SCH (07:38)
[2016-07-09] MEDS: Potassium Chloride LIQUID* 20 MEQ PACKET PEG TUBE SCH (07:38)
[2016-07-09] MEDS: Polyethylene Glycol 3350* 17 GM PACKET G TUBE SCH (07:38)
[2016-07-09] MEDS: Famotidine SUSP* 40 MG/5 ML ORAL.SUSP PEG TUBE SCH (07:39)
[2016-07-09] MEDS: Heparin VIAL(*) 5000 UNITS/ML VIAL (FIVE THOUSAND) SUBCUT SCH (07:39)
[2016-07-09 09:19] VITALS: BP 110/52
== END 2016-07-09 10:35 | disposition home or self-care (01) | DRG 291 ==
LOC: ED 23:06 → ICU 07-04 02:35 → MED 07-05 14:05
PROVIDERS: ADMIT Hospitalist; ATTEND Internal Medicine
PROC: 5A09457 Assistance with Respiratory Ventilation, 24-96 Consecutive Hours, Continuous Positive Airway Pressure (ICD-10-PCS; principal; 2016-07-03)
DX: I50.31 Acute diastolic (congestive) heart failure (principal); J69.0 Pneumonitis due to inhalation of food and vomit; J96.01 Acute respiratory failure with hypoxia; D69.6 Thrombocytopenia, unspecified; F72 Severe intellectual disabilities; R13.10 Dysphagia, unspecified; Z93.1 Gastrostomy status; E03.9 Hypothyroidism, unspecified; Z66 Do not resuscitate; K21.9 Gastro-esophageal reflux disease without esophagitis; K05.10 Chronic gingivitis, plaque induced; K59.00 Constipation, unspecified; L60.2 Onychogryphosis; M25.9 Joint disorder, unspecified; H50.9 Unspecified strabismus; J42 Unspecified chronic bronchitis; H02.403 Unspecified ptosis of bilateral eyelids; B35.1 Tinea unguium; Z87.891 Personal history of nicotine dependence; E66.9 Obesity, unspecified; Z68.33 Body mass index [BMI] 33.0-33.9, adult; Z86.73 Personal history of transient ischemic attack (TIA), and cerebral infarction without residual deficits; R68.0 Hypothermia, not associated with low environmental temperature
CPT/HCPCS: 36415; 36600; 71010; 80048; 80053; 80076; 81003; 82533; 82550; 82553; 82803; 83605; 83690; 83735; 83880; 84439; 84443; 84484; 85025; 85027; 85379; 85610; 85730; 86140; 87040; 87070; 87205; 87641; 87899; 93005; 93306; 94660; 94760; A9270-GY; J1644; J1940; J2543

== ENCOUNTER 2016-11-21 05:00 | Inpatient (IN) | payer MEDICARE, MEDICAID ==
[2016-11-21] MEDS ORDERED: Acetaminophen TAB* 325 MG PO PRN (06:37)
[2016-11-21] MEDS ORDERED: Albuterol/Ipratropium NEB.SOL* Albuterol 2.5 MG/Ipratropium 0.5 MG 3 ML INH PRN (06:37)
[2016-11-21] MEDS: NS 0.9% 1000 ML* 1,000 ML IV SCH ×2 (07:18→16:52)
[2016-11-21] MEDS ORDERED: Magnesium Hydroxide LIQ* 30 ML UDC PEG TUBE PRN (07:37)
[2016-11-21] MEDS ORDERED: Ipratropium HFA INHALER(NF) (ALTERNATIVE = NEBS) INH PRN (07:37)
[2016-11-21] MEDS ORDERED: Bisacodyl SUPP* 10 MG SUPP PR PRN (07:37)
[2016-11-21] MEDS ORDERED: Acetaminophen ADULT LIQ* 650 MG/20.3 ML UDC PEG TUBE PRN (07:37)
[2016-11-21] MEDS ORDERED: Zosyn per Pharmacy* NOTE FOLLOW UP SCH (08:00)
[2016-11-21 08:53] LABS: Hematocrit 34 % (42-52); Hemoglobin 11.6 g/dl (14.0-18.0); Mean Corpuscular HGB Conc 34 g/dl (31-36); Mean Corpuscular Hemoglobin 34 pg (27-31); Mean Corpuscular Volume 99 fL (80-94); Mean Platelet Volume 11 um3 (7.4-10.4); Red Blood Count 3.43 10^6/ul (4.0-5.4); Red Cell Distribution Width 16 % (10.5-15); White Blood Count 3.2 10^3/ul (3.5-10.8)
[2016-11-21 08:55] LABS: Add Diff/Slide Review? Slide Review Added; Comments Flag Yes
[2016-11-21 08:56] LABS: ALT 49 U/L (7-52); AST 38 U/L (13-39); Albumin 3.1 g/dL (3.2-5.2); Alkaline Phosphatase 182 U/L (34-104); Anion Gap 3 mmol/L (2-11); BUN/Creatinine Ratio 32.6 (8-20); Blood Urea Nitrogen 15 mg/dL (6-24); CO2 Carbon Dioxide 34 mmol/L (22-32); Calcium 8.7 mg/dL (8.6-10.3); Chloride 99 mmol/L (101-111); EGFR African American 230.8 (>60); EGFR Non-African American 179.5 (>60); Glucose 79 mg/dL (70-100); Sodium 136 mmol/L (133-145); Total Protein 6.1 g/dL (6.4-8.9)
[2016-11-21] MEDS: Docusate LIQ* 100 MG/10 ML UDC G TUBE SCH ×2 (09:00→20:13)
[2016-11-21] MEDS: Potassium Chloride LIQUID* 20 MEQ PACKET PEG TUBE SCH (09:02)
[2016-11-21] MEDS: Aspirin TAB* 325 MG PEG TUBE SCH (09:02)
[2016-11-21] MEDS: guaiFENesin LIQ* 100 MG/5 ML UDC PEG TUBE PRN ×3 (09:02→20:14)
[2016-11-21] MEDS: Artificial Tears* 15 ML BTL BOTH EYES SCH ×2 (09:03→20:08)
[2016-11-21 09:59] LABS: Erythrocyte Sed Rate 68 mm/Hr (0-40)
--- NOTE | 2016-11-21 10:00 | HP ---
CC: Dr. John Donahue HISTORY AND PHYSICAL: DATE OF ADMISSION: 11/21/16 TIME OF EVALUATION: 7:30 a.m. CHIEF COMPLAINT: "Slow to respond" as per records. HISTORY OF PRESENT ILLNESS: Mr. Leal is a 71-year-old male with a past medical history of diastolic CHF, GI bleed, CVA, hypothyroidism, dysphagia, aspiration pneumonitis, chronic lower extremity edema, GERD, severe intellectual disability, constipation, strabismus, chronic bronchitis that worsened initially from his residence at the [facility]. The patient is just mumbling words at this time and cannot provide any history. As per records, the patient was sent to the emergency room because he had been slow to respond since the evening before, was noted to be hypothermic with a temperature of 95.7 and stated that he was not feeling well. The patient has a history of chronic aspiration pneumonia and his feeding rate had recently been decreased from 40 to 30 mL an hour in an attempt to decrease future incidence. The patient had been hospitalized approximately a month ago with similar complaints diagnosed with aspiration pneumonia at that time. I am unable to obtain any further history from the patient. PAST MEDICAL HISTORY: 1. Diastolic CHF. 2. History of GI bleed. 3. History of CVA. 4. Hypothyroidism. 5. Dysphagia. 6. Aspiration pneumonitis. 7. Chronic bilateral lower extremity edema. 8. GERD. 9. Severe intellectual disability. 10. Constipation. 11. Strabismus. 12. Chronic bronchitis. MEDICATION LIST: 1. Acetaminophen liquid 500 mg via PEG tube q.6 hours p.r.n. pain or fever. 2. Aloe [place] Protective applied to red areas in the buttocks daily as needed. 3. Artificial tears 2 drops to both eyes b.i.d. 4. Aspirin 325 mg via PEG tube daily. 5. Atrovent HFA inhaled q.i.d. p.r.n. cough. 6. Colace 5 mL PEG tube b.i.d. 7. Dulcolax suppository 10 mg per rectum q.72 hours p.r.n. constipation. 8. Furosemide 40 mg via PEG tube daily. 9. Guaifenesin 5 mL PEG tube q.i.d. p.r.n. cough. 10. Jevity 1.2 two cans at 8 a.m. and 8 p.m. via PEG. 11. Levothyroxine 75 mcg via PEG daily at 6 a.m. 12. Lotrimin 1% topical b.i.d. as needed for rash. 13. Milk of magnesia 5 mL via PEG tube q.48 hours as needed for constipation. 14. Potassium chloride 20 mEq via PEG tube daily. 15. Spironolactone 25 mg PEG tube b.i.d. 16. Gel-[place] topical to teeth at bedtime. FAMILY HISTORY: Not obtainable. SOCIAL HISTORY: As per records. The patient has a history of chewing tobacco in the past. No history of alcohol or drug use. He resides at the [facility]. As per records, he is DNR/DNI. Surrogate decision maker is his sister , Alondra Varghese, phone number is [phone]. REVIEW OF SYSTEMS: Unable to obtain from the patient. PHYSICAL EXAMINATION GENERAL: The patient is an elderly male lying in bed in no acute distress. VITAL SIGNS: Temperature 96.5, heart rate is 68, respiratory rate 16, oxygen saturation is 100% on 2 L nasal cannula, blood pressure is 101/49. HEENT: Pupils are equal. The patient has strabismus and bilateral ptosis. Mucous membranes are moist. CHEST: Breath sounds bilaterally coarse with crackles in the left base. CVS: Normal S1 and S2. Regular rate and rhythm. ABDOMEN: Soft, nontender, nondistended. Bowel sounds present. PEG tube is in place. EXTREMITIES: Mild bilateral lower extremity edema. NEUROLOGIC: The patient is alert, mumbling words. He is not following commands at this time. LABORATORY IMAGING DATA: At [place], the patient had chemistry that showed the sodium of 137, potassium 4.3, chloride of 98, bicarb of 34, BUN of 18, creatinine of 0.6, glucose of 97, lactic acid 0.9, calcium 9.2, magnesium 2.7, bilirubin 0.3, AST of 46, ALT of 74, alk phos of 248, troponin of 0.006, BNP of 57. CBC showed WBC of 3.6, hemoglobin 12.8, hematocrit 38, platelets of 86 with 59% neutrophils. Urinalysis was negative. A portable chest x-ray film was sent in CD and reviewed and there is suggestion of a left lung infiltrate. ASSESSMENT AND PLAN: Mr. Leal is a 71-year-old male with a past medical history of congestive heart failure, gastrointestinal bleed, cerebrovascular accident, hypothyroidism, dysphagia, aspiration pneumonitis, gastroesophageal reflux disease, severe intellectual disability, chronic bronchitis, recent admission for aspiration pneumonitis that presented to the emergency room at [facility] with malaise, lethargy, hypothermia found to have possible aspiration pneumonitis and transferred to our facility for further evaluation and treatment. PROBLEMS: 1. Aspiration pneumonitis: The patient was hypothermic per notes description. [place] [facility] [place] vital signs are stable. With his history of dysphagia and this infiltrates on his chest x-ray, aspiration pneumonia seems to be the main culprit. The patient will be admitted to the medical floor. We are going to start him empirically on Zosyn. Continue IV hydration, supplemental oxygen, and breathing treatment as needed. His dysphagia is chronic and he is not on any oral diet anymore, so I do not think speech pathology evaluation at this point is going to change his management. Cultures were sent at [place]. We are going to send cultures here too and he will be closely monitored. 2. Diastolic CHF. The patient's last echo was done on June 2016 with an ejection fraction of 60% to 65%. He does have some mild lower extremity edema, but in the setting of infection and hypotension, I am going to hold his diuretics for now and monitor his fluid status. 3. Hypothyroidism. We will continue levothyroxine. 4. GERD. The patient is not on a PPI anymore at this point and the combination of PPI and antibiotics can increase his risk of C. diff, so we will not start it now. 5. History of CVA. We will continue aspirin. 6. DVT prophylaxis: The patient has a score of 3 on a DVT Prophylaxis Risk Assessment Guide and he will be started on subcutaneous heparin. 7. Code status as per records, the patient is a [id number]/do-not- intubate. We are waiting for his MOLST form to be sent from his facility. TIME SPENT: Approximately 55 minutes was spent in medical records review, patient's physical examination to complete the admission, more than half of this time was spent [id number] with the patient in coordination of care. [id number]/[facility] #: [id number] [facility]
--- NOTE | 2016-11-21 10:50 | RAD ---
HISTORY: Pneumonia, sepsis COMPARISONS: July 05, 2016 VIEWS: 2: Frontal and lateral views of the chest. FINDINGS: CARDIOMEDIASTINAL SILHOUETTE: The cardiomediastinal silhouette is stable. AXEL: The axel are normal. PLEURA: The costophrenic angles are sharp. No pleural abnormalities are noted. LUNG PARENCHYMA: There is a diffuse reticular pattern with indistinct pulmonary vessels. ABDOMEN: The upper abdomen is clear. There is no subphrenic gas. BONES AND SOFT TISSUES: Again noted are multiple calcified loose bodies of the right shoulder joint OTHER: None. IMPRESSION: PULMONARY INTERSTITIAL EDEMA
[2016-11-21] MEDS: ZOSYN 3.375 GM Q8H per EXTENDED INFUSION IVPB SCH ×4 (11:54→20:08)
[2016-11-21] MEDS: Heparin VIAL(*) 5000 UNITS/ML VIAL (FIVE THOUSAND) SUBCUT SCH ×2 (14:49→22:26)
[2016-11-22] MEDS: ZOSYN 3.375 GM Q8H per EXTENDED INFUSION IVPB SCH ×6 (03:54→20:38)
[2016-11-22 05:59] LABS: Hematocrit 31 % (42-52); Hemoglobin 10.6 g/dl (14.0-18.0); Mean Corpuscular HGB Conc 34 g/dl (31-36); Mean Corpuscular Hemoglobin 34 pg (27-31); Mean Corpuscular Volume 100 fL (80-94); Mean Platelet Volume 11 um3 (7.4-10.4); Red Blood Count 3.14 10^6/ul (4.0-5.4); Red Cell Distribution Width 16 % (10.5-15); White Blood Count 4.7 10^3/ul (3.5-10.8)
[2016-11-22 06:04] LABS: Comments Flag Yes
[2016-11-22 06:15] LABS: Calcium 8.1 mg/dL (8.6-10.3); EGFR African American 142.2 (>60); EGFR Non-African American 110.5 (>60); Potassium 3.9 mmol/L (3.5-5.0)
[2016-11-22] MEDS: Heparin VIAL(*) 5000 UNITS/ML VIAL (FIVE THOUSAND) SUBCUT SCH ×3 (06:25→20:37)
[2016-11-22] MEDS: Levothyroxine TAB* 75 MCG TAB PEG TUBE SCH (06:25)
--- NOTE | 2016-11-22 08:51 | PN ---
Subjective Date of Service: 11/22/16 Interval History: HOSPITALIST PROGRESS NOTE Patient seen and examined at bedside. He grunts only, non verbal at this point. Family History: Unchanged from Admission Social History: Unchanged from Admission Past Medical History: Unchanged from Admission Objective Active Medications: Acetaminophen (Tylenol Adult Liq*) 500 mg PEG TUBE Q6H PRN PRN Reason: Pain/fever Albuterol/Ipratropium (Duoneb (Albuterol 2.5 Mg/Ipratropium 0.5 Mg)) 1 neb INH RT.[id number] AWAKE PRN PRN Reason: sob/wheexing Aspirin (Aspirin Tab*) 325 mg PEG TUBE DAILY [facility] Last Admin: 11/21/16 09:02 Dose: 325 mg Bisacodyl (Dulcolax Supp*) 10 mg MS Q72H PRN PRN Reason: CONSTIPATION Docusate Sodium (Colace Liq*) 50 mg G TUBE BID [facility] Last Admin: 11/21/16 20:13 Dose: 50 mg Guaifenesin (Robitussin*) 5 ml PEG TUBE QID PRN PRN Reason: COUGH Last Admin: 11/21/16 20:14 Dose: 5 ml Heparin Sodium (Porcine) (Heparin Vial(*)) 5,000 units SUBCUT Q8HR [facility] Last Admin: 11/22/16 06:25 Dose: 5,000 units Piperacillin Sod/Tazobactam (Sod 3.375 gm/ Sodium Chloride) 100 mls @ 25 mls/ hr IVPB Q8H [facility] Last Admin: 11/22/16 03:54 Dose: 25 mls/hr Ipratropium [place] (Atrovent Hfa Inhaler(Nf)) 1 puff INH QID PRN PRN Reason: cough Levothyroxine Sodium (Synthroid Tab*) 75 mcg PEG TUBE DAILY@0600 [facility] Last Admin: 11/22/16 06:25 Dose: 75 mcg Magnesium Hydroxide (Milk Of Magnesia Liq*) 30 ml PEG TUBE Q48HR PRN PRN Reason: CONSTIPATION Last Admin: 11/21/16 09:02 Dose: 30 ml Pharmacy Consult (Zosyn Per Pharmacy*) 1 note FOLLOW UP .ZOSYN PER PHARMACY [facility] Polyvinyl Alcohol (Polyvinyl Alcohol 1.4% Opth*) 2 drop BOTH EYES BID [facility] Last Admin: 11/21/16 20:08 Dose: 2 drop Potassium Chloride (Klor-Con Liquid*) 20 meq PEG TUBE DAILY [facility] Last Admin: 11/21/16 09:02 Dose: 20 meq Vital Signs 11/21/16 23:24 Temperature 98.6 F Pulse Rate 89 Respiratory 12 Rate Blood Pressure 103/55 (mmHg) O2 Sat by Pulse 99 Oximetry Oxygen Devices in Use Now: Nasal Cannula Appearance: Elderly male lying in bed in NAD. Eyes: No Scleral Icterus Ears/Nose/Mouth/Throat: Mucous Membranes Moist Neck: Trachea Midline Respiratory: Symmetrical Chest Expansion and Respiratory Effort, - - BS+ bilaterally coarse, no added sounds Cardiovascular: RRR - Normal S1 and S2 Abdominal: NL Sounds; No Tenderness; No Distention Extremities: - - Mild bilateral LE edema Neurological: - - Alert and awake Lines/Tubes/Other Access: Clean, Dry and Intact Peripheral IV Nutrition: - - Tube feeds Result Diagrams: 11/22/16 04:56 11/22/16 04:53 Assess/Plan/Problems-Billing Assessment: Mr. Leal is a 71 yo M with PMH of diastolic CHF, GI bleed, CVA, hypothyroidism, MR, chronic dysphagia, s/p PEG, aspiration pneumonitis, GERD, who presented to ED with malaise and weakness, found to have pneumonia. - Patient Problems (1) Aspiration pneumonitis Comment: - Continue Zosyn. - Stop IVF. - Will need NT suction by RT. (2) Diastolic CHF Comment: - Stable at this point. - Diuretics on hold for now. (3) Hypothyroidism Comment: - Continue Levothyroxine. (4) DVT prophylaxis Comment: - SQ heparin. (5) DNR (do not resuscitate) Status and Disposition: Inpatient for management of aspiration pneumonia.
[2016-11-22] MEDS: Potassium Chloride LIQUID* 20 MEQ PACKET PEG TUBE SCH (09:39)
[2016-11-22] MEDS: Aspirin TAB* 325 MG PEG TUBE SCH (09:39)
[2016-11-22] MEDS: Artificial Tears* 15 ML BTL BOTH EYES SCH ×2 (09:39→20:37)
[2016-11-22] MEDS: Docusate LIQ* 100 MG/10 ML UDC G TUBE SCH ×2 (09:39→20:37)
[2016-11-23] MEDS: ZOSYN 3.375 GM Q8H per EXTENDED INFUSION IVPB SCH ×6 (05:25→19:46)
[2016-11-23] MEDS: Heparin VIAL(*) 5000 UNITS/ML VIAL (FIVE THOUSAND) SUBCUT SCH ×3 (05:40→20:40)
[2016-11-23] MEDS: Levothyroxine TAB* 75 MCG TAB PEG TUBE SCH (05:40)
[2016-11-23] MEDS: Docusate LIQ* 100 MG/10 ML UDC G TUBE SCH ×2 (10:33→19:47)
[2016-11-23] MEDS: Potassium Chloride LIQUID* 20 MEQ PACKET PEG TUBE SCH (10:34)
[2016-11-23] MEDS: Aspirin TAB* 325 MG PEG TUBE SCH (10:34)
[2016-11-23] MEDS: Artificial Tears* 15 ML BTL BOTH EYES SCH ×3 (10:57→20:41)
--- NOTE | 2016-11-23 14:51 | CONS ---
CC: John Donahue DO; Jeannine Moreno NP * PALLIATIVE CARE CONSULTATION REPORT: DATE OF CONSULT: 11/23/16 PRIMARY CARE PHYSICIAN: John Donahue DO REQUESTING PROVIDER FOR CONSULT: Jeannine Moreno NP HOSPITAL COURSE: This is a 71-year-old male with a past medical history of profound intellectual disability, who presented from a long term in [facility] with altered mental status. The patient is nonverbal currently and not able to provide the history. The history is obtained from the chart, his sister who is the active legal guardian, Alondra Varghese, and the residential nurse keymodule assembly supervisor, Essie Peña. Per them, the patient has been hospitalized mostly at [place] almost every month with aspiration pneumonia. He has required frequent hospitalizations. As of few weeks ago, they did decrease his tube feeding rate from 40 cc an hour to 30 cc an hour in order to try to limit the occurrence of aspiration. Unfortunately, he presents again to the emergency room here, at this time at [facility], hypothermic and tachypneic. The patient was started on antibiotics empirically and admitted to the floor. The patient had a PEG tube placed back in April 2014. He has had several issues with his malfunction of his feeding tube and has needed to have surgery to have it changed out 4 times in 2 years and as mentioned, he has had continued decline in his respiratory status with recurrent aspiration pneumonia. I talked to the sister and Essie, the residential nurse, regarding his hospice eligibility, which he is eligible for hospice with a principal diagnosis of recurrent aspiration pneumonia and hypoxic respiratory failure. The sister is concerned about him being managed at the long term with hospice and would like to talk further with the primary care physician, her brother, who is the secondary guardian, and with Essie as well. It seems that Essie seems to be in agreement that hospice is appropriate for him with his frequent hospitalizations and that he would likely do better staying in one place in a familiar environment. She states at baseline, he is wheelchair bound. He is verbal but slow. He is able to express his needs, but he is on intellectual levels of a toddler. He does go to a day program 5 days a week he is not able to attend. Otherwise, unable to obtain a review of systems due to patient' s profound intellectual disability. PAST MEDICAL HISTORY: 1. History of diastolic heart failure. 2. History of GI bleed. 3. History of CVA. 4. Hypothyroidism. 5. History of recurrent aspiration pneumonia. 6. Dysphagia. 7. Chronic bilateral lower extremity edema. 8. GERD. 9. Profound intellectual disability. 10. Constipation. 11. Strabismus. 12. History of recurrent chronic bronchitis. INPATIENT MEDICATIONS: 1. Tylenol 500 mg via PEG tube q.6 hours as needed. 2. Albuterol ipratropium q.4 hours. 3. Artificial tears 2 drops both eyes b.i.d. 4. Aspirin 325 mg via PEG tube daily. 5. Dulcolax 10 mg q.72 hours as needed. 6. Colace 50 mg b.i.d. 7. Heparin 5000 units subcu t.i.d. 8. Ipratropium 1 puff inhaled four times a day as needed. 9. Levothyroxine 75 mcg PEG tube. 10. Magnesium hydroxide 30 mL q.48 hours as needed. 11. Zosyn 3.375 g q.8 hours. 12. Potassium chloride 20 mEq PEG tube daily. 13. Guaifenesin 5 mL PEG tube four times a day. ALLERGIES: QUINOLONES. FAMILY HISTORY: Unable to obtain. SOCIAL HISTORY: As mentioned, the patient resides in a residential long term through [facility]. No history of tobacco, alcohol, or illicit drug use. The patient does not have capacity to make medical decisions. His active legal guardian is Alondra Varghese, phone #[phone], the residential nursing keymodule assembly supervisor at the long term who is involved in his care is Essie Peña, [phone]. His MOLST form has confirmed that he is DNR/DNI. REVIEW OF SYSTEMS: Unable to obtain. PHYSICAL EXAM: Vitals: Temp 97.9, pulse 54, respiratory rate 22, oxygen saturation 100% on 2 L, blood pressure 90/54. General: In no acute distress, resting comfortably. He is able to make eye contact, but unable to follow commands and remains nonverbal. Pupils are pinpoint, reactive, anicteric. Head normocephalic. Oropharynx mucous membranes are dry. Neck: Supple. No lymphadenopathy. Cardiac: Regular rate and rhythm. Soft systolic murmur heard throughout. Respiratory: Faint rhonchorous breath sounds bilaterally. Diminished breath sounds. No increased work of breathing. No retractions. Abdomen: Mildly distended, soft, nontender. Extremities: Lower extremity edema +2. He has a contracted left upper extremity, minimal movement of his upper extremities, and unable to elicit any movement of his lower extremities. The patient is nonverbal and unable to follow commands. DIAGNOSTIC STUDIES/LAB DATA: White count 4.7, hemoglobin 10.6, hematocrit 31, platelets 77. Sodium 137, potassium 3.9, chloride 103, bicarb 29, BUN 14, creatinine 0.7. Albumin on admission is 3.1. Radiographic data: Chest x-ray, pulmonary interstitial edema. ASSESSMENT AND PLAN: This is a 71-year-old male with past medical history of profound intellectual disability with recurrent aspiration pneumonia, who has been on PEG tube feeding since 2015 with a recent decline in his volume of his tube feeds with aspiration pneumonia persisting. I spoke with the sister and the residential nurse, Essie, at length regarding my concern, and he is going to continue to decline with recurrent aspiration pneumonia and worsening hypoxia , and that he is eligible for hospice due to his recurrent aspiration pneumonia , dysphagia, and respiratory failure. I think the patient will be good candidate to have hospice come to the long term to try to keep him out of the hospital and manage his symptoms at home. Alondra wanted to speak more at length with her brother and the primary and Essie before making that decision. We are happy to send a referral over and provide an informational session for the sister so that she can understand better the services that [facility] can provide to her brother. His MOLST form is currently a DNR/DNI. We will send a referral over for an informational session and we will follow up with the sister and Essie once they have discussed further after they have more information. Thank you for this consultation, we will follow along with you. PATIENT TIME: Greater than 90 minutes was spent doing this consultation, more than half the time spent in direct patient contact. [id number]/[facility] #: [id number] [place]
--- NOTE | 2016-11-23 15:49 | PN ---
Subjective Date of Service: 11/23/16 Interval History: Patient seen and examined at bedside. He is non-verbal. Family History: Unchanged from Admission Social History: Unchanged from Admission Past Medical History: Unchanged from Admission Objective Active Medications: Acetaminophen (Tylenol Adult Liq*) 500 mg PEG TUBE Q6H PRN Albuterol/Ipratropium (Duoneb (Albuterol 2.5 Mg/Ipratropium 0.5 Mg)) 1 neb INH RT.[id number] AWAKE PRN Aspirin (Aspirin Tab*) 325 mg PEG TUBE DAILY [facility] Bisacodyl (Dulcolax Supp*) 10 mg [place] Q72H PRN Docusate Sodium (Colace Liq*) 50 mg G TUBE BID [facility] Guaifenesin (Robitussin*) 5 ml PEG TUBE QID PRN Heparin Sodium (Porcine) (Heparin Vial(*)) 5,000 units SUBCUT Q8HR [facility] Piperacillin Sod/Tazobactam (Sod 3.375 gm/ Sodium Chloride) 100 mls @ 25 mls/ hr IVPB Q8H [facility] Ipratropium [place] (Atrovent Hfa Inhaler(Nf)) 1 puff INH QID PRN Levothyroxine Sodium (Synthroid Tab*) 75 mcg PEG TUBE DAILY@0600 [facility] Magnesium Hydroxide (Milk Of Magnesia Liq*) 30 ml PEG TUBE Q48HR PRN Pharmacy Consult (Zosyn Per Pharmacy*) 1 note FOLLOW UP .ZOSYN PER PHARMACY [facility] Polyvinyl Alcohol (Polyvinyl Alcohol 1.4% Opth*) 2 drop BOTH EYES BID [facility] Potassium Chloride (Klor-Con Liquid*) 20 meq PEG TUBE DAILY [facility] 11/23/16 15:22 Temperature Pulse Rate 48 Respiratory 18 Rate Blood Pressure 130/48 (mmHg) O2 Sat by Pulse 100 Oximetry Oxygen Devices in Use Now: Nasal Cannula Appearance: elderly man lying in bed, NAD Eyes: No Scleral Icterus Ears/Nose/Mouth/Throat: NL Teeth, Lips, Gums Neck: NL Appearance and Movements; NL JVP Respiratory: - - coarse lung sounds bilaterally. Cardiovascular: NL Sounds; No Murmurs; No JVD, RRR Abdominal: NL Sounds; No Tenderness; No Distention Extremities: No Edema, - - 2+ bilateral edema Neurological: - - Alert and awake Lines/Tubes/Other Access: Clean, Dry and Intact [place], Clean, Dry and Intact Peripheral IV Nutrition: - - Tube Feeds. Result Diagrams: 11/22/16 04:56 11/22/16 04:53 Assess/Plan/Problems-Billing Assessment: Mr. Leal is a 71 yo M with PMH of diastolic CHF, GI bleed, CVA, hypothyroidism, MR, chronic dysphagia, s/p PEG, aspiration pneumonitis, GERD, who presented to ED with malaise and weakness, found to have pneumonia. - Patient Problems (1) Aspiration pneumonitis Comment: Continue Zosyn. PRN NT suction by RT. Appreciate Palliative input. Patient is a candidate for hospice given recurrent aspiration pneumonia, respiratory failure and dysphagia. Family wants to discuss before making a decision. (2) Diastolic CHF Current Visit: Yes Status: Acute Code(s): I50.30 - UNSPECIFIED DIASTOLIC ( CONGESTIVE) HEART FAILURE SNOMED Code(s): 837220871 Comment: Not in acute exacerbation. Hold diuretics for now as BP still on the low side. (3) Hypothyroidism Comment: Continue Levothyroxine. (4) DVT prophylaxis Comment: SQ heparin. (5) DNR (do not resuscitate) Status and Disposition: Inpatient for management of aspiration pneumonia. Plan to discharge ot [facility] when stable.
[2016-11-24] MEDS: ZOSYN 3.375 GM Q8H per EXTENDED INFUSION IVPB SCH ×6 (03:39→21:00)
[2016-11-24] MEDS: Heparin VIAL(*) 5000 UNITS/ML VIAL (FIVE THOUSAND) SUBCUT SCH ×3 (05:19→22:00)
[2016-11-24] MEDS: Levothyroxine TAB* 75 MCG TAB PEG TUBE SCH (05:19)
[2016-11-24] MEDS: Aspirin TAB* 325 MG PEG TUBE SCH (10:10)
[2016-11-24] MEDS: Docusate LIQ* 100 MG/10 ML UDC G TUBE SCH ×2 (10:10→21:00)
[2016-11-24] MEDS: Artificial Tears* 15 ML BTL BOTH EYES SCH ×2 (10:10→22:46)
[2016-11-24] MEDS: Potassium Chloride LIQUID* 20 MEQ PACKET PEG TUBE SCH (10:10)
--- NOTE | 2016-11-24 14:54 | PN ---
Subjective Date of Service: 11/24/16 Interval History: HOSPITALIST PROGRESS NOTE Patient seen and examined at bedside. He's more awake today, speaking 1-2 words at a time, like "hurry up", "bring back". Offers no complaints. He was hypothermic again this AM, but with no other symptoms. Family History: Unchanged from Admission Social History: Unchanged from Admission Past Medical History: Unchanged from Admission Objective Active Medications: Acetaminophen (Tylenol Adult Liq*) 500 mg PEG TUBE Q6H PRN PRN Reason: Pain/fever Last Admin: 11/22/16 22:40 Dose: 500 mg Albuterol/Ipratropium (Duoneb (Albuterol 2.5 Mg/Ipratropium 0.5 Mg)) 1 neb INH RT.[id number] AWAKE PRN PRN Reason: sob/wheexing Aspirin (Aspirin Tab*) 325 mg PEG TUBE DAILY [facility] Last Admin: 11/24/16 10:10 Dose: 325 mg Bisacodyl (Dulcolax Supp*) 10 mg [place] Q72H PRN PRN Reason: CONSTIPATION Docusate Sodium (Colace Liq*) 50 mg G TUBE BID [facility] Last Admin: 11/24/16 10:10 Dose: 50 mg Guaifenesin (Robitussin*) 5 ml PEG TUBE QID PRN PRN Reason: COUGH Last Admin: 11/21/16 20:14 Dose: 5 ml Heparin Sodium (Porcine) (Heparin Vial(*)) 5,000 units SUBCUT Q8HR [facility] Last Admin: 11/24/16 14:16 Dose: 5,000 units Piperacillin Sod/Tazobactam (Sod 3.375 gm/ Sodium Chloride) 100 mls @ 25 mls/ hr IVPB Q8H [facility] Last Admin: 11/24/16 11:54 Dose: 25 mls/hr Ipratropium [place] (Atrovent Hfa Inhaler(Nf)) 1 puff INH QID PRN PRN Reason: cough Levothyroxine Sodium (Synthroid Tab*) 75 mcg PEG TUBE DAILY@0600 [facility] Last Admin: 11/24/16 05:19 Dose: 75 mcg Magnesium Hydroxide (Milk Of Magnesia Liq*) 30 ml PEG TUBE Q48HR PRN PRN Reason: CONSTIPATION Last Admin: 11/21/16 09:02 Dose: 30 ml Pharmacy Consult (Zosyn Per Pharmacy*) 1 note FOLLOW UP .ZOSYN PER PHARMACY [facility] Polyvinyl Alcohol (Polyvinyl Alcohol 1.4% Opth*) 2 drop BOTH EYES BID [facility] Last Admin: 11/24/16 10:10 Dose: Not Given Potassium Chloride (Klor-Con Liquid*) 20 meq PEG TUBE DAILY [facility] Last Admin: 11/24/16 10:10 Dose: 20 meq Vital Signs 11/24/16 11/24/16 11/24/16 00:11 07:57 08:00 Temperature 97.5 F Pulse Rate 56 49 Respiratory 20 12 16 Rate Blood Pressure 121/61 121/58 (mmHg) O2 Sat by Pulse 97 99 Oximetry Oxygen Devices in Use Now: Nasal Cannula Appearance: Elderly male lying in bed in NAD. Eyes: No Scleral Icterus Ears/Nose/Mouth/Throat: Mucous Membranes Moist Neck: Trachea Midline Respiratory: Symmetrical Chest Expansion and Respiratory Effort, - - BS+ bilaterally coarse with no added sounds Cardiovascular: RRR - Normal S1 and S2 Extremities: - - bilateral LE edema Neurological: - - Alert and awake Result Diagrams: 11/22/16 04:56 11/22/16 04:53 Assess/Plan/Problems-Billing Assessment: Mr. Leal is a 71 yo M with PMH of diastolic CHF, GI bleed, CVA, hypothyroidism, MR, chronic dysphagia, s/p PEG, aspiration pneumonitis, GERD, who presented to ED with malaise and weakness, found to have pneumonia. - Patient Problems (1) Hypothermia Comment: - Patient's infection seems to be improving, but he's hypothermic again today. - His random cortison is only 7 during a moment of stress, so suspect some degree of relative adrenal insufficiency. - Will start stress dose steroids. (2) Aspiration pneumonitis Comment: - Continue Zosyn #4/7. - PRN NT suction by RT. - Palliative care input appreciated. Patient is a candidate for hospice given recurrent aspiration pneumonia, respiratory failure and dysphagia. Family wants to discuss before making a decision. (3) Diastolic CHF Comment: - Not in acute exacerbation. - Will resume Furosemide. (4) Hypothyroidism Comment: - Continue Levothyroxine. (5) DVT prophylaxis Comment: - SQ heparin. (6) DNR (do not resuscitate) Status and Disposition: Inpatient for management of aspiration pneumonia. Plan to discharge to halfway when stable.
[2016-11-24] MEDS: Hydrocortisone INJ* 100 MG VIAL IV SCH ×2 (15:34→23:38)
[2016-11-25] MEDS: ZOSYN 3.375 GM Q8H per EXTENDED INFUSION IVPB SCH ×6 (04:16→19:35)
[2016-11-25] MEDS: Levothyroxine TAB* 75 MCG TAB PEG TUBE SCH (05:36)
[2016-11-25] MEDS: Heparin VIAL(*) 5000 UNITS/ML VIAL (FIVE THOUSAND) SUBCUT SCH ×3 (05:36→22:18)
[2016-11-25 06:18] LABS: Hematocrit 29 % (42-52); Hemoglobin 9.8 g/dl (14.0-18.0); Mean Corpuscular HGB Conc 34 g/dl (31-36); Mean Corpuscular Hemoglobin 34 pg (27-31); Mean Corpuscular Volume 99 fL (80-94); Mean Platelet Volume 10 um3 (7.4-10.4); Red Blood Count 2.89 10^6/ul (4.0-5.4); Red Cell Distribution Width 16 % (10.5-15)
[2016-11-25 06:21] LABS: Comments Flag Yes
[2016-11-25 06:30] LABS: Calcium 8.3 mg/dL (8.6-10.3); EGFR African American 169.8 (>60); EGFR Non-African American 132.1 (>60); Potassium 4.1 mmol/L (3.5-5.0)
[2016-11-25] MEDS: Hydrocortisone INJ* 100 MG VIAL IV SCH ×2 (06:45→14:55)
[2016-11-25] MEDS: Aspirin TAB* 325 MG PEG TUBE SCH (11:19)
[2016-11-25] MEDS: Docusate LIQ* 100 MG/10 ML UDC G TUBE SCH ×2 (11:20→19:37)
[2016-11-25] MEDS: Potassium Chloride LIQUID* 20 MEQ PACKET PEG TUBE SCH (11:20)
[2016-11-25] MEDS: Furosemide TAB* 40 MG G TUBE SCH (11:20)
[2016-11-25] MEDS: Artificial Tears* 15 ML BTL BOTH EYES SCH ×2 (11:20→19:37)
--- NOTE | 2016-11-25 15:19 | PN ---
Subjective Date of Service: 11/25/16 Interval History: HOSPITALIST PROGRESS NOTE Patient seen and examined at bedside. More active today, mumbling words, removing his oxygen. No further hypothermia today. Family History: Unchanged from Admission Social History: Unchanged from Admission Past Medical History: Unchanged from Admission Objective Active Medications: Acetaminophen (Tylenol Adult Liq*) 500 mg PEG TUBE Q6H PRN PRN Reason: Pain/fever Last Admin: 11/22/16 22:40 Dose: 500 mg Albuterol/Ipratropium (Duoneb (Albuterol 2.5 Mg/Ipratropium 0.5 Mg)) 1 neb INH RT.[id number] AWAKE PRN PRN Reason: sob/wheexing Aspirin (Aspirin Tab*) 325 mg PEG TUBE DAILY [facility] Last Admin: 11/25/16 11:19 Dose: 325 mg Bisacodyl (Dulcolax Supp*) 10 mg [place] Q72H PRN PRN Reason: CONSTIPATION Docusate Sodium (Colace Liq*) 50 mg G TUBE BID [facility] Last Admin: 11/25/16 11:20 Dose: 50 mg Furosemide (Lasix Tab*) 40 mg G TUBE DAILY [facility] Last Admin: 11/25/16 11:20 Dose: 40 mg Guaifenesin (Robitussin*) 5 ml PEG TUBE QID PRN PRN Reason: COUGH Last Admin: 11/21/16 20:14 Dose: 5 ml Heparin Sodium (Porcine) (Heparin Vial(*)) 5,000 units SUBCUT Q8HR [facility] Last Admin: 11/25/16 14:55 Dose: 5,000 units Hydrocortisone Sodium Succinate (Solu-Cortef*) 50 mg IV Q8H [facility] Last Admin: 11/25/16 14:55 Dose: 50 mg Piperacillin Sod/Tazobactam (Sod 3.375 gm/ Sodium Chloride) 100 mls @ 25 mls/ hr IVPB Q8H [facility] Last Admin: 11/25/16 11:20 Dose: 25 mls/hr Ipratropium [place] (Atrovent Hfa Inhaler(Nf)) 1 puff INH QID PRN PRN Reason: cough Levothyroxine Sodium (Synthroid Tab*) 75 mcg PEG TUBE DAILY@0600 [facility] Last Admin: 11/25/16 05:36 Dose: 75 mcg Magnesium Hydroxide (Milk Of Magnesia Liq*) 30 ml PEG TUBE Q48HR PRN PRN Reason: CONSTIPATION Last Admin: 11/21/16 09:02 Dose: 30 ml Pharmacy Consult (Zosyn Per Pharmacy*) 1 note FOLLOW UP .ZOSYN PER PHARMACY [facility] Polyvinyl Alcohol (Polyvinyl Alcohol 1.4% Opth*) 2 drop BOTH EYES BID [facility] Last Admin: 11/25/16 11:20 Dose: 2 drop Potassium Chloride (Klor-Con Liquid*) 20 meq PEG TUBE DAILY [facility] Last Admin: 11/25/16 11:20 Dose: 20 meq Vital Signs 11/25/16 08:09 Temperature 98.5 F Pulse Rate 58 Respiratory 21 Rate Blood Pressure 91/73 (mmHg) O2 Sat by Pulse 99 Oximetry Oxygen Devices in Use Now: None Appearance: Elderly gentleman lying in bed in NAD. Eyes: No Scleral Icterus Ears/Nose/Mouth/Throat: Mucous Membranes Moist Neck: Trachea Midline Respiratory: Symmetrical Chest Expansion and Respiratory Effort, - - BS+ bilaterally coarse, no added sounds Cardiovascular: RRR - Normal S1 and S2 Abdominal: NL Sounds; No Tenderness; No Distention - PEG in place Neurological: - - Alert and awake Result Diagrams: 11/25/16 06:02 11/25/16 06:02 Assess/Plan/Problems-Billing Assessment: Mr. Leal is a 71 yo M with PMH of diastolic CHF, GI bleed, CVA, hypothyroidism, MR, chronic dysphagia, s/p PEG, aspiration pneumonitis, GERD, who presented to ED with malaise and weakness, found to have pneumonia. - Patient Problems (1) Hypothermia Comment: - Patient's infection seems to be improving, but he was hypothermic again 11/24/16. - His random cortison is only 7 during a moment of stress, so suspect some degree of relative adrenal insufficiency. - Seems to be responding to stress dose steroids - will change Hydrocortisone to Prednisone 10mg daily for now, until pneumonia treatment finished, but can probably be on 2.5-5mg/day at baseline with higher doses when ill. (2) Aspiration pneumonitis Comment: - Continue Zosyn #5/7. - PRN NT suction by RT. - Palliative care input appreciated. Patient is a candidate for hospice given recurrent aspiration pneumonia, respiratory failure and dysphagia. Family wants to discuss before making a decision. (3) Diastolic CHF Comment: - Not in acute exacerbation. - Continue Furosemide. - Aldactone still on hold. (4) Hypothyroidism Comment: - Continue Levothyroxine. (5) DVT prophylaxis Comment: - SQ heparin. (6) DNR (do not resuscitate) Status and Disposition: Inpatient for management of aspiration pneumonia. [facility]
[2016-11-26] MEDS: ZOSYN 3.375 GM Q8H per EXTENDED INFUSION IVPB SCH ×6 (03:41→19:16)
[2016-11-26] MEDS: Heparin VIAL(*) 5000 UNITS/ML VIAL (FIVE THOUSAND) SUBCUT SCH ×3 (05:31→21:55)
[2016-11-26] MEDS: Levothyroxine TAB* 75 MCG TAB PEG TUBE SCH (05:31)
[2016-11-26] MEDS: Furosemide TAB* 40 MG G TUBE SCH (09:33)
[2016-11-26] MEDS: Potassium Chloride LIQUID* 20 MEQ PACKET PEG TUBE SCH (09:33)
[2016-11-26] MEDS: predniSONE TAB* 10 MG PEG TUBE SCH (09:33)
[2016-11-26] MEDS: Docusate LIQ* 100 MG/10 ML UDC G TUBE SCH ×2 (09:33→21:54)
[2016-11-26] MEDS: Aspirin TAB* 325 MG PEG TUBE SCH (09:33)
[2016-11-26] MEDS: Artificial Tears* 15 ML BTL BOTH EYES SCH ×2 (09:33→19:21)
[2016-11-26] MEDS: Spironolactone TAB* 25 MG PEG TUBE SCH ×2 (12:26→21:54)
--- NOTE | 2016-11-26 15:18 | PN ---
Subjective Date of Service: 11/26/16 Interval History: HOSPITALIST PROGRESS NOTE Patient seen and examined at bedside. Non-verbal but bright eyed today, followed examiner with his eyes. Family History: Unchanged from Admission Social History: Unchanged from Admission Past Medical History: Unchanged from Admission Objective Active Medications: Acetaminophen (Tylenol Adult Liq*) 500 mg PEG TUBE Q6H PRN PRN Reason: Pain/fever Last Admin: 11/22/16 22:40 Dose: 500 mg Albuterol/Ipratropium (Duoneb (Albuterol 2.5 Mg/Ipratropium 0.5 Mg)) 1 neb INH RT.[id number] AWAKE PRN PRN Reason: sob/wheexing Aspirin (Aspirin Tab*) 325 mg PEG TUBE DAILY [facility] Last Admin: 11/26/16 09:33 Dose: 325 mg Bisacodyl (Dulcolax Supp*) 10 mg [place] Q72H PRN PRN Reason: CONSTIPATION Docusate Sodium (Colace Liq*) 50 mg G TUBE BID [facility] Last Admin: 11/26/16 09:33 Dose: 50 mg Furosemide (Lasix Tab*) 40 mg G TUBE DAILY [facility] Last Admin: 11/26/16 09:33 Dose: 40 mg Guaifenesin (Robitussin*) 5 ml PEG TUBE QID PRN PRN Reason: COUGH Last Admin: 11/21/16 20:14 Dose: 5 ml Heparin Sodium (Porcine) (Heparin Vial(*)) 5,000 units SUBCUT Q8HR [facility] Last Admin: 11/26/16 12:26 Dose: 5,000 units Piperacillin Sod/Tazobactam (Sod 3.375 gm/ Sodium Chloride) 100 mls @ 25 mls/ hr IVPB Q8H [facility] Last Admin: 11/26/16 12:26 Dose: 25 mls/hr Ipratropium [place] (Atrovent Hfa Inhaler(Nf)) 1 puff INH QID PRN PRN Reason: cough Levothyroxine Sodium (Synthroid Tab*) 75 mcg PEG TUBE DAILY@0600 [facility] Last Admin: 11/26/16 05:31 Dose: 75 mcg Magnesium Hydroxide (Milk Of Magnesia Liq*) 30 ml PEG TUBE Q48HR PRN PRN Reason: CONSTIPATION Last Admin: 11/21/16 09:02 Dose: 30 ml Pharmacy Consult (Zosyn Per Pharmacy*) 1 note FOLLOW UP .ZOSYN PER PHARMACY [facility] Polyvinyl Alcohol (Polyvinyl Alcohol 1.4% Opth*) 2 drop BOTH EYES BID [facility] Last Admin: 11/26/16 09:33 Dose: 2 drop Potassium Chloride (Klor-Con Liquid*) 20 meq PEG TUBE DAILY [facility] Last Admin: 11/26/16 09:33 Dose: 20 meq Prednisone (Deltasone Tab*) 10 mg PEG TUBE DAILY [facility] Last Admin: 11/26/16 09:33 Dose: 10 mg Spironolactone (Aldactone Tab*) 25 mg PEG TUBE BID [facility] Last Admin: 11/26/16 12:26 Dose: 25 mg Vital Signs 11/25/16 11/25/16 11/25/16 16:01 19:38 20:00 Temperature 98.9 F 98.5 F Pulse Rate 57 56 Respiratory 18 16 20 Rate Blood Pressure 107/53 97/52 (mmHg) O2 Sat by Pulse 95 95 Oximetry 11/25/16 11/26/16 11/26/16 23:53 03:23 07:13 Temperature 98.0 F 96.1 F 97.4 F Pulse Rate 54 56 55 Respiratory 19 19 18 Rate Blood Pressure 108/52 102/52 115/51 (mmHg) O2 Sat by Pulse 98 96 96 Oximetry 11/26/16 11/26/16 08:00 13:15 Temperature 98.3 F Pulse Rate 50 Respiratory 18 18 Rate Blood Pressure 111/53 (mmHg) O2 Sat by Pulse 96 Oximetry Oxygen Devices in Use Now: None Appearance: Elderly male lying in bed in [facility]. Eyes: No Scleral Icterus Ears/Nose/Mouth/Throat: Mucous Membranes Moist Neck: Trachea Midline Respiratory: Symmetrical Chest Expansion and Respiratory Effort, - - BS+ bilaterally coarse, with no added sounds Cardiovascular: RRR - Normal S1 and S2 Extremities: - - Bilateral LE moderate to severe pitting edema Neurological: - - Alert and awake Result Diagrams: 11/25/16 06:02 11/25/16 06:02 Assess/Plan/Problems-Billing Assessment: Mr. Leal is a 71 yo M with PMH of diastolic CHF, GI bleed, CVA, hypothyroidism, MR, chronic dysphagia, s/p PEG, aspiration pneumonitis, GERD, who presented to ED with malaise and weakness, found to have pneumonia. - Patient Problems (1) Hypothermia Comment: - Patient's infection is improving, but he was hypothermic again . - His random cortison is only 7 during a moment of stress, so suspect some degree of relative adrenal insufficiency. - Seems to be responding to stress dose steroids - will change Hydrocortisone to Prednisone 10mg daily for now, until pneumonia treatment finished, but can probably be on 2.5-5mg/day at baseline with higher doses when ill. (2) Aspiration pneumonitis Comment: - Continue Zosyn #/. - Palliative care input appreciated. Patient is a candidate for hospice given recurrent aspiration pneumonia, respiratory failure and dysphagia. Family wants to discuss before making a decision. (3) Diastolic CHF Comment: - Not in acute exacerbation, but his LE edema is worse. - Continue Furosemide and resume Aldactone. (4) Hypothyroidism Comment: - Continue Levothyroxine. (5) DVT prophylaxis Comment: - SQ heparin. (6) DNR (do not resuscitate) Status and Disposition: Inpatient for management of aspiration pneumonia. Plan to discharge to [facility] when stable.
[2016-11-27] MEDS: ZOSYN 3.375 GM Q8H per EXTENDED INFUSION IVPB SCH ×2 (03:40)
[2016-11-27] MEDS: Heparin VIAL(*) 5000 UNITS/ML VIAL (FIVE THOUSAND) SUBCUT SCH (06:16)
[2016-11-27] MEDS: Levothyroxine TAB* 75 MCG TAB PEG TUBE SCH (06:16)
[2016-11-27] MEDS: Aspirin TAB* 325 MG PEG TUBE SCH (09:20)
[2016-11-27] MEDS: predniSONE TAB* 10 MG PEG TUBE SCH (09:20)
[2016-11-27] MEDS: Potassium Chloride LIQUID* 20 MEQ PACKET PEG TUBE SCH (09:20)
[2016-11-27] MEDS: Furosemide TAB* 40 MG G TUBE SCH (09:20)
[2016-11-27] MEDS: Docusate LIQ* 100 MG/10 ML UDC G TUBE SCH (09:20)
[2016-11-27] MEDS: Artificial Tears* 15 ML BTL BOTH EYES SCH (09:21)
[2016-11-27] MEDS: Spironolactone TAB* 25 MG PEG TUBE SCH (09:21)
--- NOTE | 2016-11-27 12:11 | PN ---
Progress Note - Progress Note Date of Service: 11/27/16 Note: Time spent on discharge 55 minutes.
--- NOTE | 2016-11-27 12:17 | PN ---
Subjective Date of Service: 11/27/16 Interval History: Patient not able to make his needs known. Family History: Unchanged from Admission Social History: Unchanged from Admission Past Medical History: Unchanged from Admission Objective Active Medications: Acetaminophen (Tylenol Adult Liq*) 500 mg PEG TUBE Q6H PRN PRN Reason: Pain/fever Last Admin: 11/22/16 22:40 Dose: 500 mg Albuterol/Ipratropium (Duoneb (Albuterol 2.5 Mg/Ipratropium 0.5 Mg)) 1 neb INH RT.[id number] AWAKE PRN PRN Reason: sob/wheexing Aspirin (Aspirin Tab*) 325 mg PEG TUBE DAILY [facility] Last Admin: 11/27/16 09:20 Dose: 325 mg Bisacodyl (Dulcolax Supp*) [address] Q72H PRN PRN Reason: CONSTIPATION Docusate Sodium (Colace Liq*) 50 mg G TUBE BID [facility] Last Admin: 11/27/16 09:20 Dose: 50 mg Furosemide (Lasix Tab*) 40 mg G TUBE DAILY [facility] Last Admin: 11/27/16 09:20 Dose: 40 mg Guaifenesin (Robitussin*) 5 ml PEG TUBE QID PRN PRN Reason: COUGH Last Admin: 11/21/16 20:14 Dose: 5 ml Heparin Sodium (Porcine) (Heparin Vial(*)) 5,000 units SUBCUT Q8HR [facility] Last Admin: 11/27/16 06:16 Dose: 5,000 units Piperacillin Sod/Tazobactam (Sod 3.375 gm/ Sodium Chloride) 100 mls @ 25 mls/ hr IVPB Q8H [facility] Last Admin: 11/27/16 03:40 Dose: 25 mls/hr Ipratropium [place] (Atrovent Hfa Inhaler(Nf)) 1 puff INH QID PRN PRN Reason: cough Levothyroxine Sodium (Synthroid Tab*) 75 mcg PEG TUBE DAILY@0600 [facility] Last Admin: 11/27/16 06:16 Dose: 75 mcg Magnesium Hydroxide (Milk Of Magnesia Liq*) 30 ml PEG TUBE Q48HR PRN PRN Reason: CONSTIPATION Last Admin: 11/21/16 09:02 Dose: 30 ml Pharmacy Consult (Zosyn Per Pharmacy*) 1 note FOLLOW UP .ZOSYN PER PHARMACY [facility] Polyvinyl Alcohol (Polyvinyl Alcohol 1.4% Opth*) 2 drop BOTH EYES BID [facility] Last Admin: 11/27/16 09:21 Dose: 2 drop Potassium Chloride (Klor-Con Liquid*) 20 meq PEG TUBE DAILY [facility] Last Admin: 11/27/16 09:20 Dose: 20 meq Prednisone (Deltasone Tab*) 10 mg PEG TUBE DAILY [facility] Last Admin: 11/27/16 09:20 Dose: 10 mg Spironolactone (Aldactone Tab*) 25 mg PEG TUBE BID [facility] Last Admin: 11/27/16 09:21 Dose: 25 mg Vital Signs 11/26/16 11/26/16 11/26/16 13:15 16:03 20:00 Temperature 98.3 F 97.4 F Pulse Rate 50 53 Respiratory 18 18 19 Rate Blood Pressure 111/53 125/57 (mmHg) O2 Sat by Pulse 96 95 Oximetry 11/26/16 11/26/16 11/26/16 20:05 23:21 23:31 Temperature 97.6 F 97.1 F Pulse Rate 82 50 Respiratory 18 16 Rate Blood Pressure 118/47 118/46 (mmHg) O2 Sat by Pulse 97 95 Oximetry 11/27/16 11/27/16 11/27/16 03:55 07:46 08:00 Temperature 98.1 F 97.5 F Pulse Rate 52 50 Respiratory 16 19 19 Rate Blood Pressure 105/64 136/112 (mmHg) O2 Sat by Pulse 95 99 Oximetry Oxygen Devices in Use Now: None Appearance: Supine in bed. Brief eye contact. Neutral affect. Looks comfortable. Respiratory: Symmetrical Chest Expansion and Respiratory Effort, Clear to Auscultation, Clear to Percussion Cardiovascular: NL Sounds; No Murmurs; No JVD, RRR, No Edema, - Extremities: No Clubbing, Cyanosis, - - Tr pedal edema BL. Skin on feet and lower legs wrinkled BL. Skin: No Rash or Ulcers, No Nodules or Sclerosis, - Neurological: NL Sensation, - - Non-verbal, passive. No tremor. Result Diagrams: 11/25/16 06:02 11/25/16 06:02 Microbiology and Other Data: Microbiology 11/21/16 08:38 Aerobic Blood Culture - Preliminary Blood Venous No Growth Day 1 Anaerobic Blood Culture - Preliminary No Growth Day 1 11/21/16 08:25 Aerobic Blood Culture - Preliminary Blood Venous No Growth Day 1 Anaerobic Blood Culture - Preliminary No Growth Day 1 11/21/16 08:21 Nasal Screen MRSA (PCR)(FILIPE) - Final Nasal Mrsa Negative Assess/Plan/Problems-Billing Assessment: Mr. Leal is a 71 yo M with PMH of diastolic CHF, GI bleed, CVA, hypothyroidism, MR, chronic dysphagia, s/p PEG, aspiration pneumonitis, GERD, who presented to ED with malaise and weakness, found to have pneumonia. - Patient Problems (1) Hypothermia Current Visit: Yes Status: Acute Code(s): T68.XXXA - HYPOTHERMIA, INITIAL ENCOUNTER SNOMED Code(s): 298567760 Comment: - Patient's infection is improving, but he was hypothermic again 09/03. - His random cortison is only 7.26 during a time of stress, so suspect some degree of relative adrenal insufficiency. Change to enteral hydrocortisone 20+10 mg daily. (2) Hypothyroidism Current Visit: Yes Status: Acute Code(s): E03.9 - HYPOTHYROIDISM, UNSPECIFIED SNOMED Code(s): 50866086 Comment: - Continue Levothyroxine. (3) Diastolic CHF Current Visit: Yes Status: Acute Code(s): I50.30 - UNSPECIFIED DIASTOLIC ( CONGESTIVE) HEART FAILURE SNOMED Code(s): 879410099 Comment: Compensated. Continue Furosemide and Aldactone. (4) Mental retardation Current Visit: No Status: Acute Code(s): F79 - UNSPECIFIED INTELLECTUAL DISABILITIES SNOMED Code(s): 65442788 Comment: Continue tube feeds for chronic dysphagia. Continue supportive care. Referral made to [facility]. (5) Thrombocytopenia Current Visit: No Status: Acute Code(s): D69.6 - THROMBOCYTOPENIA, UNSPECIFIED SNOMED Code(s): 754234485 Comment: Chronic, stable. Needs outpt fup. Status and Disposition: Inpatient for management of aspiration pneumonia. Plan to [facility] to [facility] when stable.
[2016-11-27 12:28] VITALS: BP 111/52
[2016-11-27] MEDS ORDERED: Hydrocortisone TAB* 10 MG PO SCH (21:00)
--- NOTE | 2016-11-28 00:12 | DS ---
DISCHARGE SUMMARY: DATE OF ADMISSION: 11/21/16 DATE OF DISCHARGE: 11/27/16 HISTORY: This 71-year-old man presented with a change in mental status. He had severe intellectual disability. Essentially, he was admitted because he was hypothermic with a temperature of 95.7 at [facility]. He was about 96 degrees here. In the past, the patient was found to have aspiration pneumonia when he was hypothermic. The patient never had a fever. His hypothermia gradually resolved. His chest x - ray was clear. His white blood count remained normal. He was treated for aspiration pneumonia. This was by no means a definitive diagnosis, but may explain his presentation. He was also found to have a cortisol level at about noon that was 7.26. It was felt he was under stress at that time and may be indicative of adrenal suppression. He has been started on adrenal replacement therapy with glucocorticoid replacement. He was treated with intravenous antibiotics. He seems to be in a stable condition at this time. FINAL DIAGNOSES: 1. Hypothermia. 2. Probable aspiration pneumonia. 3. Diastolic congestive heart failure. 4. Hypothyroidism. 5. Severe intellectual disability. DISCHARGE MEDICATIONS: 1. Acetaminophen 500 mg in PEG tube every 6 hours p.r.n. 2. Albuterol/ipratropium nebulizer as needed every 4 hours. 3. Bisacodyl suppository 10 mg every 3 days p.r.n. 4. Hydrocortisone 20 mg in the morning, 10 mg in the evening. 5. Ipratropium inhaler 1 puff 4 times a day p.r.n. 6. Spironolactone 25 mg b.i.d. 7. Potassium chloride 20 mEq daily. 8. Furosemide 40 mg daily. 9. Dulcolax suppository 10 mg rectally every 3 days p.r.n. 10. Aspirin 325 mg daily. 11. Artificial Tears 2 drops both eyes b.i.d. 12. Guaifenesin 5 mL 4 times a day p.r.n. 13. Levothyroxine 75 mcg daily at 6 a.m. The patient is on a tube-feeding diet. [id number]/[facility] #: [id number] [facility]
[2016-11-28] MEDS ORDERED: Hydrocortisone TAB* 10 MG PO SCH (09:00)
== END 2016-11-27 14:10 | DRG 177 ==
LOC: MEDTELE 06:52 → MED 11-24 07:30
PROVIDERS: ADMIT Internal Medicine; ATTEND Internal Medicine
DX: J69.0 Pneumonitis due to inhalation of food and vomit (principal); J96.91 Respiratory failure, unspecified with hypoxia; T68.XXXA Hypothermia, initial encounter; I50.32 Chronic diastolic (congestive) heart failure; F72 Severe intellectual disabilities; E27.40 Unspecified adrenocortical insufficiency; D69.6 Thrombocytopenia, unspecified; R13.10 Dysphagia, unspecified; E03.9 Hypothyroidism, unspecified; K21.9 Gastro-esophageal reflux disease without esophagitis; J42 Unspecified chronic bronchitis; R60.0 Localized edema; H50.9 Unspecified strabismus; Z66 Do not resuscitate; Z86.73 Personal history of transient ischemic attack (TIA), and cerebral infarction without residual deficits; Z93.1 Gastrostomy status; R68.0 Hypothermia, not associated with low environmental temperature; Z79.890 Hormone replacement therapy; Z79.82 Long term (current) use of aspirin; I34.0 Nonrheumatic mitral (valve) insufficiency; Z88.8 Allergy status to other drugs, medicaments and biological substances
CPT/HCPCS: 36415; 71020; 80048; 80076; 82533; 84145; 85025; 85652; 86140; 87040; 87641; 94760; A9270-GY; J1644; J1720; J2543; J7512